=== PATIENT | female | born 1935 | race Caucasian/White ===

== ENCOUNTER 2017-10-02 04:48 | Inpatient (IN) ==
[2017-10-02] MEDS ORDERED: ONDANSETRON 4 MG/2 ML VIAL IV STA (05:04)
[2017-10-02] MEDS ORDERED: MORPHINE 4 MG/1 ML VIAL IV STA (05:04)
[2017-10-02 05:45] LABS: PT Patient Result 10.5 SECS; Partial Thromboplastin Time 26.8 SECS (0-40)
[2017-10-02 05:49] LABS: Apearance,Urine CLOUDY (Clear); Bilirubin,Urine Negative (Negative); Blood, Urine Small mg/dL (Negative); Glucose,Urine (UA) Negative (Negative); Ketones,Urine Negative (Negative); Nitrite,Urine Positive (Negative); Protein,Urine 100 MG/DL; RBC,Urine 29 /HPF (0-4); Urine Color Amber (Yellow); Urine Specific Gravity 1.008 (1.001-1.035); Urine Urobilinogen < 2.0 EU/DL (0.2-1.0); WBC,Urine 2432 /HPF (0-6)
[2017-10-02 05:58] LABS: Albumin 3.4 G/DL (3.4-5.0); Bilirubin,Total 0.6 MG/DL (0.2-1.0); Calcium 8.4 MG/DL (8.5-10.1); Osmolality,Calculated 287.1 MOS/KG (273-304); Potassium 3.8 MMOL/L (3.5-5.1); Total Protein 6.6 G/DL (6.4-8.3)
[2017-10-02] MEDS ORDERED: MORPHINE 4 MG/1 ML VIAL IV PRN ×2 (06:08→08:07)
[2017-10-02] MEDS ORDERED: ONDANSETRON 4 MG/2 ML VIAL IV PRN (06:08)
[2017-10-02] MEDS ORDERED: MAGNESIUM HYDROXIDE SUSP 30 ML UDCUP PO PRN ×2 (06:08→07:57)
[2017-10-02 06:24] LABS: Basophils % 0.2 % (0.0-0.8); Eosinophils # 0.1 10*3/uL (0.0-0.87); Eosinophils % 0.7 % (0.00-10.9); Hematocrit 42.7 VOL% (35.7-47.0); Immature Granulocytes % 0.6 %; Lymphocytes # 1.2 10*3/uL (1.4-4.0); Lymphocytes % 7.4 % (21.3-54.2); Mean Corpuscular HGB Conc 30.4 GM/DL (32-36); Mean Corpuscular Hemoglobin 29 PG (27-34); Mean Corpuscular Volume 93.8 FL (87-102); Mean Platelet Volume 11.3 FL (9.6-12.0); Monocytes # 0.8 10*3/uL (0.11-0.8); Monocytes % 5.1 % (1.7-12.7); Neutrophils # 14.1 10*3/uL (1.4-7.4); Platelet Count 209 T/CUMM (130-400); Red Blood Count 4.55 MC/CUMM (3.8-5.5); Red Cell Distribution Width 14.7 % (9.3-17.3); White Blood Count 16.4 T/CUMM (4-12)
[2017-10-02] MEDS ORDERED: BUPIVACAINE SPINAL 0.75% 2 ML AMP SPINAL ONE ×2 (06:54→06:55)
[2017-10-02] MEDS ORDERED: TRANEXAMIC ACID 1,000 MG/10 ML VIAL ONE (07:05)
[2017-10-02] MEDS ORDERED: ALBUTEROL 2.5 MG/3 ML NEB RESP TX ONE (07:57)
[2017-10-02] MEDS ORDERED: PROMETHAZINE 25 MG/1 ML VIAL IM PRN (08:07)
[2017-10-02] MEDS ORDERED: ACETAMINOPHEN 325 MG TABLET PO PRN (08:07)
[2017-10-02] MEDS ORDERED: BISACODYL 10 MG SUPP RECTAL PRN (08:07)
[2017-10-02] MEDS ORDERED: LACTULOSE 20 GM/30 ML UDCUP PO PRN (08:07)
[2017-10-02] MEDS ORDERED: MELOXICAM 7.5 MG TABLET PO PRN (08:12)
[2017-10-02] MEDS ORDERED: ALBUTEROL/IPRATROPIUM 3 ML NEB RESP TX PRN (08:12)
[2017-10-02] MEDS ORDERED: ceFAZolin 1,000 MG VIAL ONE (08:18)
[2017-10-02] MEDS ORDERED: SEVOFLURANE 1 UNIT/15 MINUTE INH ONE (09:55)
[2017-10-02] MEDS ORDERED: fentaNYL 100 MCG/2 ML VIAL ONE (09:55)
[2017-10-02] MEDS ORDERED: PROPOFOL 200 MG/20 ML VIAL IV ONE (09:55)
[2017-10-02] MEDS ORDERED: ePHEDrine 50 MG/ML AMP ONE (09:55)
[2017-10-02] MEDS ORDERED: PHENYLEPHRINE 10 MG/1 ML VIAL IV ONE (09:56)
[2017-10-02] MEDS ORDERED: ONDANSETRON 4 MG/2 ML VIAL ONE (09:56)
[2017-10-02] MEDS ORDERED: PHENYLEPHRINE 1 MG/10 ML SYRINGE IV ONE (09:56)
[2017-10-02] MEDS ORDERED: KETAMINE 500 MG/10 ML VIAL ONE (09:56)
[2017-10-02] MEDS ORDERED: ACETAMINOPHEN 1,000 MG/100 ML VIAL IV ONE (09:56)
[2017-10-02] MEDS ORDERED: GLYCOPYRROLATE 0.4 MG/2 ML VIAL ONE (09:56)
[2017-10-02] MEDS ORDERED: LACTATED RINGERS 1,000 ML IV ONE (09:57)
[2017-10-02] MEDS ORDERED: ROCURONIUM 100 MG/10 ML VIAL IV ONE (09:57)
[2017-10-02] MEDS ORDERED: NEOSTIGMINE 10 MG/10 ML VIAL ONE (09:57)
[2017-10-02] MEDS ORDERED: ESMOLOL 100 MG/10 ML VIAL IV ONE ×2 (10:29)
[2017-10-02] MEDS: PHENYLEPHRINE DRIP 40 MG/250 ML PREMIX IV PRN ×2 (10:30→21:37)
[2017-10-02] MEDS: DEXTROSE 5% NACL 0.45% 1,000 ML IV SCH (11:43)
[2017-10-02] MEDS: GABAPENTIN 600 MG TABLET PO SCH ×2 (11:44→20:47)
[2017-10-02] MEDS: THEOPHYLLINE ER (24 HR) 200 MG CAPSULE PO SCH (11:44)
[2017-10-02] MEDS ORDERED: MAGNESIUM SULF RIDER 2 GM in PREMIX 1 EACH IV PRN (15:31)
[2017-10-02] MEDS ORDERED: MAGNESIUM SULF RIDER 4 GM in PREMIX 1 EACH IV PRN (15:31)
[2017-10-02] MEDS: ceFAZolin 1,000 MG in SYRINGE 1 EACH IV SCH ×2 (17:20→23:57)
[2017-10-02] MEDS: GABAPENTIN 300 MG CAPSULE PO SCH (18:04)
[2017-10-02] MEDS: clonazePAM 0.5 MG TABLET PO SCH (20:47)
[2017-10-03 05:56] LABS: Calcium 7.1 MG/DL (8.5-10.1); Osmolality,Calculated 285.1 MOS/KG (273-304); Potassium 4.2 MMOL/L (3.5-5.1)
[2017-10-03] MEDS: LEVOTHYROXINE 50 MCG TABLET PO SCH (06:18)
[2017-10-03] MEDS: DEXTROSE 5% NACL 0.45% 1,000 ML IV SCH ×2 (06:20→08:42)
[2017-10-03 07:38] LABS: Basophils % 0.1 % (0.0-0.8); Eosinophils # 0.1 10*3/uL (0.0-0.87); Eosinophils % 0.6 % (0.00-10.9); Hematocrit 30.5 VOL% (35.7-47.0); Hemoglobin 9.2 GM/DL (12.0-16.0); Immature Granulocytes % 0.8 %; Immature Granulocytes Absolute 0.09 #; Lymphocytes # 1.4 10*3/uL (1.4-4.0); Lymphocytes % 12.4 % (21.3-54.2); Mean Corpuscular HGB Conc 30.2 GM/DL (32-36); Mean Corpuscular Hemoglobin 29 PG (27-34); Mean Platelet Volume 10.6 FL (9.6-12.0); Neutrophils # 8.4 10*3/uL (1.4-7.4); Neutrophils % 77.1 % (38.7-73.9); Platelet Count 179 T/CUMM (130-400); Red Blood Count 3.21 MC/CUMM (3.8-5.5); Red Cell Distribution Width 14.6 % (9.3-17.3); White Blood Count 10.9 T/CUMM (4-12)
[2017-10-03] MEDS: ceFAZolin 1,000 MG in SYRINGE 1 EACH IV SCH (08:49)
[2017-10-03] MEDS: FUROSEMIDE 40 MG TABLET PO SCH (08:53)
[2017-10-03] MEDS: THEOPHYLLINE ER (24 HR) 200 MG CAPSULE PO SCH (09:09)
[2017-10-03] MEDS: POTASSIUM CHLORIDE 10 MEQ TABLET PO SCH (09:10)
[2017-10-03] MEDS: GABAPENTIN 600 MG TABLET PO SCH ×2 (09:17→20:19)
[2017-10-03] MEDS: ALBUTEROL/IPRATROPIUM 3 ML NEB RESP TX SCH (09:36)
[2017-10-03] MEDS: cefTRIAXone 1,000 MG in SYRINGE 1 EACH IV SCH (13:37)
[2017-10-03] MEDS: GABAPENTIN 300 MG CAPSULE PO SCH (13:38)
[2017-10-03] MEDS: LORATADINE 10 MG TABLET PO SCH (17:40)
[2017-10-03] MEDS: clonazePAM 0.5 MG TABLET PO SCH (20:19)
[2017-10-04 05:13] LABS: Basophils % 0.1 % (0.0-0.8); Eosinophils # 0.2 10*3/uL (0.0-0.87); Eosinophils % 2.5 % (0.00-10.9); Hematocrit 24.5 VOL% (35.7-47.0); Hemoglobin 7.5 GM/DL (12.0-16.0); Immature Granulocytes % 0.6 %; Immature Granulocytes Absolute 0.05 #; Lymphocytes # 1.5 10*3/uL (1.4-4.0); Lymphocytes % 17.3 % (21.3-54.2); Mean Corpuscular HGB Conc 30.6 GM/DL (32-36); Mean Corpuscular Hemoglobin 29 PG (27-34); Mean Corpuscular Volume 93.5 FL (87-102); Mean Platelet Volume 11.3 FL (9.6-12.0); Monocytes # 0.7 10*3/uL (0.11-0.8); Monocytes % 8.8 % (1.7-12.7); Neutrophils % 70.7 % (38.7-73.9); Platelet Count 134 T/CUMM (130-400); Red Blood Count 2.62 MC/CUMM (3.8-5.5); Red Cell Distribution Width 14.2 % (9.3-17.3); White Blood Count 8.4 T/CUMM (4-12)
[2017-10-04] MEDS: LEVOTHYROXINE 50 MCG TABLET PO SCH (06:01)
[2017-10-04] MEDS ORDERED: diphenhydrAMINE CAP 25 MG CAPSULE PO PRN (06:54)
[2017-10-04] MEDS ORDERED: SODIUM CHLORIDE 0.9% 1,000 ML IV PRN (06:54)
[2017-10-04] MEDS: ALBUTEROL/IPRATROPIUM 3 ML NEB RESP TX SCH ×2 (06:58→19:12)
[2017-10-04] MEDS ORDERED: LORATADINE 10 MG TABLET PO SCH (09:00)
[2017-10-04] MEDS: GABAPENTIN 600 MG TABLET PO SCH ×2 (09:09→21:15)
[2017-10-04] MEDS: LORATADINE 10 MG TABLET PO SCH (09:10)
[2017-10-04] MEDS: POTASSIUM CHLORIDE 10 MEQ TABLET PO SCH (09:10)
[2017-10-04] MEDS: GABAPENTIN 300 MG CAPSULE PO SCH (14:29)
[2017-10-04] MEDS: FUROSEMIDE 40 MG TABLET PO SCH (17:15)
[2017-10-04] MEDS: cefTRIAXone 1,000 MG in SYRINGE 1 EACH IV SCH (17:19)
[2017-10-04] MEDS: ERTAPENEM 1,000 MG in SODIUM CHLORIDE 0.9% 100 ML IV SCH (18:42)
[2017-10-04] MEDS: clonazePAM 0.5 MG TABLET PO SCH (21:16)
[2017-10-05 04:53] LABS: Basophils % 0.1 % (0.0-0.8); Eosinophils # 0.2 10*3/uL (0.0-0.87); Eosinophils % 2.6 % (0.00-10.9); Hematocrit 31.5 VOL% (35.7-47.0); Hemoglobin 9.9 GM/DL (12.0-16.0); Immature Granulocytes % 0.7 %; Immature Granulocytes Absolute 0.06 #; Lymphocytes # 1.5 10*3/uL (1.4-4.0); Lymphocytes % 17.2 % (21.3-54.2); Mean Corpuscular HGB Conc 31.4 GM/DL (32-36); Mean Corpuscular Hemoglobin 29 PG (27-34); Mean Corpuscular Volume 91.8 FL (87-102); Mean Platelet Volume 10.8 FL (9.6-12.0); Monocytes # 0.7 10*3/uL (0.11-0.8); Monocytes % 8.1 % (1.7-12.7); Neutrophils # 6.3 10*3/uL (1.4-7.4); Neutrophils % 71.3 % (38.7-73.9); Platelet Count 139 T/CUMM (130-400); Red Blood Count 3.43 MC/CUMM (3.8-5.5); Red Cell Distribution Width 13.9 % (9.3-17.3); White Blood Count 8.8 T/CUMM (4-12)
[2017-10-05 05:24] LABS: Calcium 7.3 MG/DL (8.5-10.1); Osmolality,Calculated 278.4 MOS/KG (273-304); Potassium 4.3 MMOL/L (3.5-5.1)
[2017-10-05] MEDS: LEVOTHYROXINE 50 MCG TABLET PO SCH (06:40)
[2017-10-05] MEDS ORDERED: ENOXAPARIN 30 MG/0.3 ML SYRINGE SUBCUT SCH (09:00)
[2017-10-05] MEDS: LORATADINE 10 MG TABLET PO SCH (10:07)
[2017-10-05] MEDS: GABAPENTIN 600 MG TABLET PO SCH ×2 (10:07→21:01)
[2017-10-05] MEDS: GABAPENTIN 300 MG CAPSULE PO SCH (14:48)
[2017-10-05] MEDS ORDERED: METOPROLOL SUCCINATE XL 25 MG TABLET PO ONE (14:58)
[2017-10-05] MEDS: ERTAPENEM 1,000 MG in SODIUM CHLORIDE 0.9% 100 ML IV SCH (16:45)
[2017-10-05] MEDS: clonazePAM 0.5 MG TABLET PO SCH (21:01)
[2017-10-05] MEDS: APIXABAN 2.5 MG TABLET PO SCH (21:01)
[2017-10-06 04:54] LABS: Basophils % 0.2 % (0.0-0.8); Eosinophils # 0.4 10*3/uL (0.0-0.87); Eosinophils % 4.4 % (0.00-10.9); Hematocrit 31.9 VOL% (35.7-47.0); Hemoglobin 9.8 GM/DL (12.0-16.0); Immature Granulocytes % 1.1 %; Immature Granulocytes Absolute 0.09 #; Lymphocytes # 1.7 10*3/uL (1.4-4.0); Lymphocytes % 20.5 % (21.3-54.2); Mean Corpuscular HGB Conc 30.7 GM/DL (32-36); Mean Corpuscular Hemoglobin 29 PG (27-34); Mean Corpuscular Volume 92.7 FL (87-102); Monocytes # 0.8 10*3/uL (0.11-0.8); Monocytes % 9.9 % (1.7-12.7); Neutrophils # 5.2 10*3/uL (1.4-7.4); Neutrophils % 63.9 % (38.7-73.9); Platelet Count 181 T/CUMM (130-400); Red Blood Count 3.44 MC/CUMM (3.8-5.5); Red Cell Distribution Width 13.8 % (9.3-17.3); White Blood Count 8.2 T/CUMM (4-12)
[2017-10-06 05:13] LABS: Calcium 7.5 MG/DL (8.5-10.1); Osmolality,Calculated 279.3 MOS/KG (273-304); Potassium 4.1 MMOL/L (3.5-5.1)
[2017-10-06] MEDS: LEVOTHYROXINE 50 MCG TABLET PO SCH (06:20)
[2017-10-06] MEDS: ALBUTEROL/IPRATROPIUM 3 ML NEB RESP TX SCH (07:26)
[2017-10-06] MEDS: FUROSEMIDE 40 MG TABLET PO SCH (09:36)
[2017-10-06] MEDS: APIXABAN 2.5 MG TABLET PO SCH ×2 (09:36→21:05)
[2017-10-06] MEDS: METOPROLOL SUCCINATE XL 25 MG TABLET PO SCH (09:36)
[2017-10-06] MEDS: GABAPENTIN 600 MG TABLET PO SCH ×2 (09:36→21:08)
[2017-10-06] MEDS: LORATADINE 10 MG TABLET PO SCH (09:36)
[2017-10-06] MEDS: POTASSIUM CHLORIDE 10 MEQ TABLET PO SCH (09:37)
[2017-10-06] MEDS: GABAPENTIN 300 MG CAPSULE PO SCH (14:15)
[2017-10-06] MEDS: ERTAPENEM 1,000 MG in SODIUM CHLORIDE 0.9% 100 ML IV SCH (17:05)
[2017-10-06] MEDS: clonazePAM 0.5 MG TABLET PO SCH (21:05)
[2017-10-07] MEDS: ALBUTEROL/IPRATROPIUM 3 ML NEB RESP TX SCH (07:05)
[2017-10-07] MEDS: LEVOTHYROXINE 50 MCG TABLET PO SCH (08:04)
[2017-10-07] MEDS: METOPROLOL SUCCINATE XL 25 MG TABLET PO SCH (09:45)
[2017-10-07] MEDS: diphenhydrAMINE CAP 25 MG CAPSULE PO PRN (09:46)
[2017-10-07] MEDS: APIXABAN 2.5 MG TABLET PO SCH ×2 (09:46→20:52)
[2017-10-07] MEDS: GABAPENTIN 600 MG TABLET PO SCH ×2 (09:46→20:52)
[2017-10-07] MEDS: LORATADINE 10 MG TABLET PO SCH (09:47)
[2017-10-07] MEDS: GABAPENTIN 300 MG CAPSULE PO SCH (15:15)
[2017-10-07] MEDS: ERTAPENEM 1,000 MG in SODIUM CHLORIDE 0.9% 100 ML IV SCH (17:00)
[2017-10-07] MEDS: clonazePAM 0.5 MG TABLET PO SCH (20:52)
[2017-10-08] MEDS: LEVOTHYROXINE 50 MCG TABLET PO SCH (06:31)
[2017-10-08] MEDS: ALBUTEROL/IPRATROPIUM 3 ML NEB RESP TX SCH (07:00)
[2017-10-08] MEDS: POTASSIUM CHLORIDE 10 MEQ TABLET PO SCH (09:37)
[2017-10-08] MEDS: FUROSEMIDE 40 MG TABLET PO SCH (09:37)
[2017-10-08] MEDS: APIXABAN 2.5 MG TABLET PO SCH (09:37)
[2017-10-08] MEDS: METOPROLOL SUCCINATE XL 25 MG TABLET PO SCH (09:37)
[2017-10-08] MEDS: GABAPENTIN 600 MG TABLET PO SCH (09:37)
[2017-10-08] MEDS: LORATADINE 10 MG TABLET PO SCH (09:38)
[2017-10-08] MEDS: diphenhydrAMINE CAP 25 MG CAPSULE PO PRN (11:22)
[2017-10-08] MEDS: GABAPENTIN 300 MG CAPSULE PO SCH (15:36)
[2017-10-08] MEDS: ERTAPENEM 1,000 MG in SODIUM CHLORIDE 0.9% 100 ML IV SCH (18:23)
[2017-10-08 22:10] VITALS: BP 131/74
== END 2017-10-08 19:10 | disposition swing bed (61) | DRG 481 ==
LOC: EDBD → EDUNIT# → N.ED 04:48 → N.EDINP 06:08 → N.3E 06:36 → N.ICU 11:09 → N.3E 10-05 07:26
PROVIDERS: ADMIT Family Medicine; ATTEND Family Medicine

== ENCOUNTER 2017-10-20 13:06 | Inpatient (IN) ==
[2017-10-20] MEDS ORDERED: TEMAZEPAM 15 MG CAPSULE PO PRN (14:57)
[2017-10-20] MEDS ORDERED: ONDANSETRON 4 MG/2 ML VIAL IV PRN (14:59)
[2017-10-20] MEDS ORDERED: MORPHINE 4 MG/1 ML VIAL IV PRN (15:00)
[2017-10-20 16:03] LABS: Basophils % 0.5 % (0.0-0.8); Eosinophils # 0.3 10*3/uL (0.0-0.87); Eosinophils % 4.1 % (0.00-10.9); Hematocrit 34.5 VOL% (35.7-47.0); Hemoglobin 10.5 GM/DL (12.0-16.0); Immature Granulocytes % 1.3 %; Lymphocytes # 1.6 10*3/uL (1.4-4.0); Lymphocytes % 21.7 % (21.3-54.2); Mean Corpuscular HGB Conc 30.4 GM/DL (32-36); Mean Corpuscular Hemoglobin 29 PG (27-34); Mean Corpuscular Volume 94.8 FL (87-102); Mean Platelet Volume 10.5 FL (9.6-12.0); Monocytes # 0.5 10*3/uL (0.11-0.8); Neutrophils # 4.9 10*3/uL (1.4-7.4); Neutrophils % 65.4 % (38.7-73.9); Platelet Count 293 T/CUMM (130-400); Red Blood Count 3.64 MC/CUMM (3.8-5.5); Red Cell Distribution Width 15.3 % (9.3-17.3); White Blood Count 7.5 T/CUMM (4-12)
[2017-10-20 16:16] LABS: Apearance,Urine Slightly Hazy (Clear); Bilirubin,Urine Negative (Negative); Blood, Urine Negative (Negative); Glucose,Urine (UA) Negative (Negative); Ketones,Urine Negative (Negative); Mucus,Urine Occasional /LPF (Occasional); Nitrite,Urine Negative (Negative); Protein,Urine Negative; RBC,Urine 1 /HPF (0-4); Squamous Epithelial Cell,Urine Occasional /HPF (0-10); Urine Color Yellow (Yellow); Urine Specific Gravity 1.013 (1.001-1.035); Urine Urobilinogen < 2.0 EU/DL (0.2-1.0); WBC,Urine 92 /HPF (0-6)
[2017-10-20 16:23] LABS: Albumin 2.2 G/DL (3.4-5.0); Bilirubin,Total 0.4 MG/DL (0.2-1.0); Calcium 8.4 MG/DL (8.5-10.1); Osmolality,Calculated 284.1 MOS/KG (273-304); Potassium 4.3 MMOL/L (3.5-5.1); Total Protein 6.1 G/DL (6.4-8.3)
[2017-10-20] MEDS ORDERED: LACTULOSE 20 GM/30 ML UDCUP PO PRN (20:04)
[2017-10-20] MEDS ORDERED: MAGNESIUM HYDROXIDE SUSP 30 ML UDCUP PO PRN (20:04)
[2017-10-20] MEDS ORDERED: ACETAMINOPHEN 325 MG TABLET PO PRN (20:04)
[2017-10-20] MEDS ORDERED: ALBUTEROL/IPRATROPIUM 3 ML NEB RESP TX PRN (20:04)
[2017-10-20] MEDS ORDERED: BISACODYL 10 MG SUPP RECTAL PRN (20:04)
[2017-10-20] MEDS ORDERED: diphenhydrAMINE CAP 25 MG CAPSULE PO PRN (20:04)
[2017-10-20] MEDS ORDERED: POTASSIUM CHLORIDE 10 MEQ TABLET PO SCH (20:30)
[2017-10-20] MEDS ORDERED: FUROSEMIDE 40 MG TABLET PO SCH (20:30)
[2017-10-20] MEDS: clonazePAM 0.5 MG TABLET PO SCH (21:58)
[2017-10-20] MEDS: LACTATED RINGERS 1,000 ML IV SCH (21:58)
[2017-10-20] MEDS: GABAPENTIN 600 MG TABLET PO SCH (21:58)
[2017-10-21] MEDS: LEVOTHYROXINE 50 MCG TABLET PO SCH (07:06)
[2017-10-21] MEDS ORDERED: BUPIVACAINE SPINAL 0.75% 2 ML AMP SPINAL ONE (08:20)
[2017-10-21] MEDS: THEOPHYLLINE ER (24 HR) 200 MG CAPSULE PO SCH (08:21)
[2017-10-21] MEDS: GABAPENTIN 600 MG TABLET PO SCH ×2 (08:21→21:24)
[2017-10-21] MEDS: LORATADINE 10 MG TABLET PO SCH (08:21)
[2017-10-21] MEDS ORDERED: ceFAZolin 1,000 MG VIAL ONE (09:17)
[2017-10-21] MEDS ORDERED: SODIUM CHLORIDE 0.9% 1,000 ML IV PRN (09:31)
[2017-10-21] MEDS ORDERED: PROMETHAZINE 25 MG/1 ML VIAL IM PRN ×2 (10:45→10:48)
[2017-10-21] MEDS ORDERED: MELOXICAM 7.5 MG TABLET PO PRN (10:48)
[2017-10-21] MEDS ORDERED: ONDANSETRON 4 MG/2 ML VIAL IV PRN (10:48)
[2017-10-21] MEDS ORDERED: MORPHINE 4 MG/1 ML VIAL IV PRN (10:50)
[2017-10-21] MEDS ORDERED: ePHEDrine 50 MG/ML AMP ONE (11:07)
[2017-10-21] MEDS ORDERED: SEVOFLURANE 1 UNIT/15 MINUTE INH ONE (11:08)
[2017-10-21] MEDS ORDERED: ESMOLOL 100 MG/10 ML VIAL IV ONE (11:08)
[2017-10-21] MEDS ORDERED: fentaNYL 100 MCG/2 ML VIAL ONE (11:08)
[2017-10-21] MEDS ORDERED: GLYCOPYRROLATE 0.4 MG/2 ML VIAL ONE (11:08)
[2017-10-21] MEDS ORDERED: LACTATED RINGERS 1,000 ML IV ONE (11:09)
[2017-10-21] MEDS ORDERED: ACETAMINOPHEN 1,000 MG/100 ML VIAL IV ONE (11:09)
[2017-10-21] MEDS ORDERED: PHENYLEPHRINE 1 MG/10 ML SYRINGE IV ONE (11:09)
[2017-10-21 13:03] LABS: Basophils % 0.3 % (0.0-0.8); Eosinophils # 0.2 10*3/uL (0.0-0.87); Eosinophils % 2.4 % (0.00-10.9); Hematocrit 36.3 VOL% (35.7-47.0); Hemoglobin 10.9 GM/DL (12.0-16.0); Immature Granulocytes % 1.8 %; Immature Granulocytes Absolute 0.17 #; Lymphocytes # 1.3 10*3/uL (1.4-4.0); Lymphocytes % 13.7 % (21.3-54.2); Mean Corpuscular Hemoglobin 29 PG (27-34); Mean Corpuscular Volume 95.5 FL (87-102); Mean Platelet Volume 10.3 FL (9.6-12.0); Monocytes # 0.6 10*3/uL (0.11-0.8); Neutrophils # 7.2 10*3/uL (1.4-7.4); Neutrophils % 75.8 % (38.7-73.9); Platelet Count 305 T/CUMM (130-400); Red Cell Distribution Width 15.7 % (9.3-17.3); White Blood Count 9.4 T/CUMM (4-12)
[2017-10-21] MEDS: GABAPENTIN 300 MG CAPSULE PO SCH (14:05)
[2017-10-21] MEDS: ceFAZolin 1,000 MG in SYRINGE 1 EACH IV SCH ×2 (14:05→21:25)
[2017-10-21] MEDS: clonazePAM 0.5 MG TABLET PO SCH (21:20)
[2017-10-21] MEDS: APIXABAN 2.5 MG TABLET PO SCH (21:21)
[2017-10-21] MEDS: LACTATED RINGERS 1,000 ML IV SCH (23:42)
[2017-10-22 05:22] LABS: Basophils % 0.3 % (0.0-0.8); Eosinophils # 0.1 10*3/uL (0.0-0.87); Eosinophils % 1.2 % (0.00-10.9); Hemoglobin 9.3 GM/DL (12.0-16.0); Immature Granulocytes % 1.3 %; Immature Granulocytes Absolute 0.12 #; Lymphocytes # 1.2 10*3/uL (1.4-4.0); Lymphocytes % 12.6 % (21.3-54.2); Mean Corpuscular Hemoglobin 29 PG (27-34); Mean Corpuscular Volume 95.1 FL (87-102); Mean Platelet Volume 10.6 FL (9.6-12.0); Monocytes # 0.7 10*3/uL (0.11-0.8); Monocytes % 7.5 % (1.7-12.7); Neutrophils # 7.4 10*3/uL (1.4-7.4); Neutrophils % 77.1 % (38.7-73.9); Platelet Count 286 T/CUMM (130-400); Red Blood Count 3.26 MC/CUMM (3.8-5.5); Red Cell Distribution Width 15.7 % (9.3-17.3); White Blood Count 9.5 T/CUMM (4-12)
[2017-10-22] MEDS: ceFAZolin 1,000 MG in SYRINGE 1 EACH IV SCH (06:15)
[2017-10-22] MEDS: LEVOTHYROXINE 50 MCG TABLET PO SCH (06:15)
[2017-10-22] MEDS: METOPROLOL SUCCINATE XL 25 MG TABLET PO SCH (09:43)
[2017-10-22] MEDS: LORATADINE 10 MG TABLET PO SCH (09:43)
[2017-10-22] MEDS: FUROSEMIDE 40 MG TABLET PO SCH (09:43)
[2017-10-22] MEDS: GABAPENTIN 600 MG TABLET PO SCH ×2 (09:43→21:01)
[2017-10-22] MEDS: POTASSIUM CHLORIDE 10 MEQ TABLET PO SCH (09:43)
[2017-10-22] MEDS: APIXABAN 2.5 MG TABLET PO SCH ×2 (09:43→21:01)
[2017-10-22] MEDS: THEOPHYLLINE ER (24 HR) 200 MG CAPSULE PO SCH (09:43)
[2017-10-22] MEDS: LACTATED RINGERS 1,000 ML IV SCH (15:33)
[2017-10-22] MEDS: GABAPENTIN 300 MG CAPSULE PO SCH (17:20)
[2017-10-22] MEDS: clonazePAM 0.5 MG TABLET PO SCH (21:01)
[2017-10-23] MEDS: LEVOTHYROXINE 50 MCG TABLET PO SCH (06:00)
[2017-10-23 07:10] LABS: Hematocrit 29.3 VOL% (35.7-47.0); Hemoglobin 8.9 GM/DL (12.0-16.0); Mean Corpuscular HGB Conc 30.4 GM/DL (32-36); Mean Corpuscular Hemoglobin 29 PG (27-34); Mean Corpuscular Volume 95.4 FL (87-102); Platelet Count 256 T/CUMM (130-400); Red Blood Count 3.07 MC/CUMM (3.8-5.5); Red Cell Distribution Width 15.9 % (9.3-17.3); White Blood Count 9.1 T/CUMM (4-12)
[2017-10-23 07:11] LABS: Basophils % 0.2 % (0.0-0.8); Eosinophils # 0.1 10*3/uL (0.0-0.87); Eosinophils % 1.3 % (0.00-10.9); Immature Granulocytes % 1.1 %; Lymphocytes # 1.5 10*3/uL (1.4-4.0); Lymphocytes % 16.4 % (21.3-54.2); Mean Platelet Volume 10.3 FL (9.6-12.0); Monocytes # 0.7 10*3/uL (0.11-0.8); Monocytes % 7.9 % (1.7-12.7); Neutrophils # 6.7 10*3/uL (1.4-7.4); Neutrophils % 73.1 % (38.7-73.9)
[2017-10-23 07:23] LABS: Calcium 7.5 MG/DL (8.5-10.1); Osmolality,Calculated 279.5 MOS/KG (273-304); Potassium 4.2 MMOL/L (3.5-5.1)
[2017-10-23] MEDS: LACTATED RINGERS 1,000 ML IV SCH (07:52)
[2017-10-23] MEDS: GABAPENTIN 600 MG TABLET PO SCH ×2 (08:40→21:06)
[2017-10-23] MEDS: THEOPHYLLINE ER (24 HR) 200 MG CAPSULE PO SCH (08:40)
[2017-10-23] MEDS: LORATADINE 10 MG TABLET PO SCH (08:40)
[2017-10-23] MEDS: APIXABAN 2.5 MG TABLET PO SCH ×2 (08:41→21:05)
[2017-10-23] MEDS: METOPROLOL SUCCINATE XL 25 MG TABLET PO SCH (08:41)
[2017-10-23] MEDS: GABAPENTIN 300 MG CAPSULE PO SCH (13:17)
[2017-10-23] MEDS: NITROFURANTOIN MACRO/MONO 100 MG CAPSULE PO SCH (21:05)
[2017-10-23] MEDS: clonazePAM 0.5 MG TABLET PO SCH (21:07)
[2017-10-24 06:10] LABS: Basophils % 0.3 % (0.0-0.8); Eosinophils # 0.2 10*3/uL (0.0-0.87); Eosinophils % 2.8 % (0.00-10.9); Hematocrit 27.8 VOL% (35.7-47.0); Hemoglobin 8.3 GM/DL (12.0-16.0); Immature Granulocytes % 1.2 %; Immature Granulocytes Absolute 0.09 #; Lymphocytes # 1.7 10*3/uL (1.4-4.0); Lymphocytes % 22.7 % (21.3-54.2); Mean Corpuscular HGB Conc 29.9 GM/DL (32-36); Mean Corpuscular Hemoglobin 29 PG (27-34); Mean Corpuscular Volume 95.5 FL (87-102); Mean Platelet Volume 10.9 FL (9.6-12.0); Monocytes # 0.7 10*3/uL (0.11-0.8); Monocytes % 9.2 % (1.7-12.7); Neutrophils # 4.6 10*3/uL (1.4-7.4); Neutrophils % 63.8 % (38.7-73.9); Platelet Count 245 T/CUMM (130-400); Red Blood Count 2.91 MC/CUMM (3.8-5.5); Red Cell Distribution Width 15.4 % (9.3-17.3); White Blood Count 7.3 T/CUMM (4-12)
[2017-10-24] MEDS: LEVOTHYROXINE 50 MCG TABLET PO SCH (06:12)
[2017-10-24] MEDS: THEOPHYLLINE ER (24 HR) 200 MG CAPSULE PO SCH (08:30)
[2017-10-24] MEDS: METOPROLOL SUCCINATE XL 25 MG TABLET PO SCH (08:30)
[2017-10-24] MEDS: LORATADINE 10 MG TABLET PO SCH (08:30)
[2017-10-24] MEDS: GABAPENTIN 600 MG TABLET PO SCH (08:31)
[2017-10-24] MEDS: POTASSIUM CHLORIDE 10 MEQ TABLET PO SCH (08:31)
[2017-10-24] MEDS: NITROFURANTOIN MACRO/MONO 100 MG CAPSULE PO SCH (08:31)
[2017-10-24] MEDS: APIXABAN 2.5 MG TABLET PO SCH (08:31)
[2017-10-24] MEDS: FUROSEMIDE 40 MG TABLET PO SCH (08:31)
[2017-10-24] MEDS: GABAPENTIN 300 MG CAPSULE PO SCH (15:03)
[2017-10-24 16:39] VITALS: BP 100/40
== END 2017-10-24 17:24 | disposition swing bed (61) | DRG 481 ==
LOC: N.3E 14:22
PROVIDERS: ADMIT Orthopaedic Surgery; ATTEND Orthopaedic Surgery

== ENCOUNTER 2018-01-19 08:44 | Inpatient (IN) ==
[2018-01-19] MEDS ORDERED: SODIUM CHLORIDE 0.9% 1,000 ML IV ONE (09:27)
[2018-01-19 09:53] LABS: ABG Base Excess -0.6 MMOL/L (-2.5-2.5); ABG HCO3 23.9 MMOL/L (20-26); ABG Oxygen Saturation 98.7 % (95-100); ABG PCO2 90.8 MM HG (35-48); ABG TCO2 29.3 MMOL/L (23-27)
[2018-01-19 09:56] LABS: ABG PH 7.146 (7.35-7.45)
[2018-01-19 10:13] LABS: Lactic Acid 1.3 MMOL/L (0.4-2.0)
[2018-01-19 10:14] LABS: Albumin 2.5 G/DL (3.4-5.0); Bilirubin,Total 0.4 MG/DL (0.2-1.0); Calcium 8.5 MG/DL (8.5-10.1); Osmolality,Calculated 279.7 MOS/KG (273-304); Potassium 5.2 MMOL/L (3.5-5.1); Total Protein 6.7 G/DL (6.4-8.3)
[2018-01-19 10:21] LABS: Basophils # 0.1 10*3/uL (0.0-0.2); Basophils % 0.5 % (0.0-0.8); Eosinophils % 0.1 % (0.00-10.9); Hematocrit 39.4 VOL% (35.7-47.0); Immature Granulocytes % 3.7 %; Immature Granulocytes Absolute 0.65 #; Lymphocytes # 0.6 10*3/uL (1.4-4.0); Lymphocytes % 3.2 % (21.3-54.2); Mean Corpuscular HGB Conc 27.9 GM/DL (32-36); Mean Corpuscular Hemoglobin 26 PG (27-34); Mean Corpuscular Volume 92.3 FL (87-102); Monocytes # 1.6 10*3/uL (0.11-0.8); Monocytes % 9.3 % (1.7-12.7); Neutrophils # 14.5 10*3/uL (1.4-7.4); Neutrophils % 83.2 % (38.7-73.9); Platelet Count 328 T/CUMM (130-400); Red Blood Count 4.27 MC/CUMM (3.8-5.5); Red Cell Distribution Width 15.4 % (9.3-17.3); White Blood Count 17.4 T/CUMM (4-12)
[2018-01-19 10:48] LABS: Band Neutrophils 2 % (0-10); Hypochromasia 1+; Lymphocytes 2 % (20-55); Ovalocytes Slight; Platelet Estimate Adequate; Segmented Neutrophils 80 % (50-85); Total Cells Counted 100
[2018-01-19 11:01] LABS: Apearance,Urine CLOUDY (Clear); Bilirubin,Urine Negative (Negative); Blood, Urine Small mg/dL (Negative); Glucose,Urine (UA) Negative (Negative); Ketones,Urine Negative (Negative); Mucus,Urine Many /LPF (Occasional); Nitrite,Urine Negative (Negative); Protein,Urine 100 MG/DL; RBC,Urine 186 /HPF (0-4); Squamous Epithelial Cell,Urine Occasional /HPF (0-10); Urine Color Yellow (Yellow); Urine Specific Gravity 1.012 (1.001-1.035); Urine Urobilinogen < 2.0 EU/DL (0.2-1.0); WBC,Urine 5442 /HPF (0-6)
[2018-01-19] MEDS ORDERED: GLUCAGON 1 MG VIAL IM PRN (12:18)
[2018-01-19] MEDS ORDERED: ACETAMINOPHEN 325 MG TABLET PO PRN (12:18)
[2018-01-19] MEDS ORDERED: DEXTROSE 50% 25 GM/50 ML VIAL IV PRN (12:18)
[2018-01-19] MEDS ORDERED: ONDANSETRON 4 MG/2 ML VIAL IV PRN (12:18)
[2018-01-19] MEDS ORDERED: ALBUTEROL 2.5 MG/3 ML NEB RESP TX PRN (12:18)
[2018-01-19] MEDS: SODIUM CHLORIDE 0.9% 1,000 ML IV SCH (13:51)
[2018-01-19] MEDS: PIPERACILLIN/TAZOBACTAM 3,375 MG in SODIUM CHLORIDE 0.9% 100 ML IV SCH (15:35)
[2018-01-19] MEDS: INSULIN LISPRO 100 UNIT/ML SUBCUT SCH ×2 (17:03→21:43)
[2018-01-19] MEDS: ALBUTEROL/IPRATROPIUM 3 ML NEB RESP TX SCH (19:19)
[2018-01-19] MEDS: GABAPENTIN 300 MG CAPSULE PO SCH (21:42)
[2018-01-19] MEDS: DOCUSATE SODIUM 100 MG CAPSULE PO SCH (21:43)
[2018-01-20] MEDS: ALBUTEROL/IPRATROPIUM 3 ML NEB RESP TX SCH ×4 (01:15→20:33)
[2018-01-20] MEDS: PIPERACILLIN/TAZOBACTAM 3,375 MG in SODIUM CHLORIDE 0.9% 100 ML IV SCH ×2 (04:29→15:22)
[2018-01-20 04:42] LABS: Calcium 7.9 MG/DL (8.5-10.1); Osmolality,Calculated 280.2 MOS/KG (273-304)
[2018-01-20 04:48] LABS: Basophils # 0.1 10*3/uL (0.0-0.2); Basophils % 0.6 % (0.0-0.8); Eosinophils % 0.2 % (0.00-10.9); Hematocrit 38.4 VOL% (35.7-47.0); Hemoglobin 10.7 GM/DL (12.0-16.0); Immature Granulocytes % 4.6 %; Immature Granulocytes Absolute 0.62 #; Lymphocytes # 0.8 10*3/uL (1.4-4.0); Lymphocytes % 6.2 % (21.3-54.2); Mean Corpuscular HGB Conc 27.9 GM/DL (32-36); Mean Corpuscular Hemoglobin 26 PG (27-34); Mean Corpuscular Volume 91.9 FL (87-102); Mean Platelet Volume 10.9 FL (9.6-12.0); Monocytes # 1.3 10*3/uL (0.11-0.8); Monocytes % 9.6 % (1.7-12.7); Neutrophils # 10.5 10*3/uL (1.4-7.4); Neutrophils % 78.8 % (38.7-73.9); Platelet Count 288 T/CUMM (130-400); Red Blood Count 4.18 MC/CUMM (3.8-5.5); Red Cell Distribution Width 15.6 % (9.3-17.3); White Blood Count 13.4 T/CUMM (4-12)
[2018-01-20 05:29] LABS: Band Neutrophils 1 % (0-10); Lymphocytes 5 % (20-55); Platelet Estimate Normal; Segmented Neutrophils 86 % (50-85); Total Cells Counted 100
[2018-01-20 05:30] LABS: Hypochromasia Slight
[2018-01-20] MEDS: LEVOTHYROXINE 50 MCG TABLET PO SCH (06:33)
[2018-01-20] MEDS: INSULIN LISPRO 100 UNIT/ML SUBCUT SCH ×4 (08:58→21:31)
[2018-01-20] MEDS ORDERED: SODIUM CHLORIDE 0.9% 500 ML IV ONE (09:00)
[2018-01-20] MEDS: GABAPENTIN 300 MG CAPSULE PO SCH ×2 (09:21→20:58)
[2018-01-20] MEDS: PANTOPRAZOLE 40 MG TABLET PO SCH (09:21)
[2018-01-20] MEDS: DOCUSATE SODIUM 100 MG CAPSULE PO SCH ×2 (09:22→20:58)
[2018-01-20] MEDS: methylPREDNISolone SOD SUC 40 MG/1 ML VIAL IV SCH ×2 (09:23→20:54)
[2018-01-20 09:36] LABS: PT Patient Result 10.6 SECS
[2018-01-20] MEDS: ENOXAPARIN 40 MG/0.4 ML SYRINGE SUBCUT SCH (13:10)
[2018-01-20] MEDS: SODIUM CHLORIDE 0.9% 1,000 ML IV SCH (13:10)
[2018-01-21] MEDS: ALBUTEROL/IPRATROPIUM 3 ML NEB RESP TX SCH ×4 (00:37→19:41)
[2018-01-21] MEDS: PIPERACILLIN/TAZOBACTAM 3,375 MG in SODIUM CHLORIDE 0.9% 100 ML IV SCH ×2 (04:08→14:15)
[2018-01-21] MEDS: SODIUM CHLORIDE 0.9% 1,000 ML IV SCH ×3 (04:10→14:18)
[2018-01-21] MEDS: LEVOTHYROXINE 50 MCG TABLET PO SCH (06:02)
[2018-01-21 07:21] LABS: Calcium 7.7 MG/DL (8.5-10.1); Osmolality,Calculated 290.7 MOS/KG (273-304); Potassium 5.2 MMOL/L (3.5-5.1)
[2018-01-21 07:41] LABS: Basophils # 0.1 10*3/uL (0.0-0.2); Basophils % 0.5 % (0.0-0.8); Hematocrit 33.3 VOL% (35.7-47.0); Hemoglobin 9.8 GM/DL (12.0-16.0); Immature Granulocytes % 11.1 %; Immature Granulocytes Absolute 1.26 #; Lymphocytes # 0.6 10*3/uL (1.4-4.0); Mean Corpuscular HGB Conc 29.4 GM/DL (32-36); Mean Corpuscular Hemoglobin 26 PG (27-34); Mean Corpuscular Volume 89.3 FL (87-102); Mean Platelet Volume 10.2 FL (9.6-12.0); Monocytes # 0.3 10*3/uL (0.11-0.8); Monocytes % 2.3 % (1.7-12.7); Neutrophils # 9.2 10*3/uL (1.4-7.4); Neutrophils % 81.1 % (38.7-73.9); Platelet Count 276 T/CUMM (130-400); Red Blood Count 3.73 MC/CUMM (3.8-5.5); White Blood Count 11.3 T/CUMM (4-12)
[2018-01-21 07:51] LABS: Band Neutrophils 25 % (0-10); Lymphocytes 6 % (20-55); Platelet Estimate Normal; Segmented Neutrophils 69 % (50-85); Smudge Cells Few; Total Cells Counted 100
[2018-01-21 07:52] LABS: Anisocytosis 1+
[2018-01-21] MEDS: INSULIN LISPRO 100 UNIT/ML SUBCUT SCH ×4 (08:41→21:51)
[2018-01-21] MEDS: PANTOPRAZOLE 40 MG TABLET PO SCH (08:41)
[2018-01-21] MEDS: GABAPENTIN 300 MG CAPSULE PO SCH ×2 (08:41→20:15)
[2018-01-21] MEDS: DOCUSATE SODIUM 100 MG CAPSULE PO SCH ×2 (08:42→20:15)
[2018-01-21] MEDS: methylPREDNISolone SOD SUC 40 MG/1 ML VIAL IV SCH ×2 (08:42→20:16)
[2018-01-21] MEDS: ENOXAPARIN 40 MG/0.4 ML SYRINGE SUBCUT SCH (09:15)
[2018-01-22] MEDS: ALBUTEROL/IPRATROPIUM 3 ML NEB RESP TX SCH ×4 (01:18→19:29)
[2018-01-22] MEDS: LEVOTHYROXINE 50 MCG TABLET PO SCH (06:30)
[2018-01-22] MEDS: PIPERACILLIN/TAZOBACTAM 3,375 MG in SODIUM CHLORIDE 0.9% 100 ML IV SCH ×2 (07:20→15:24)
[2018-01-22] MEDS: INSULIN LISPRO 100 UNIT/ML SUBCUT SCH ×4 (08:42→20:55)
[2018-01-22] MEDS: GABAPENTIN 300 MG CAPSULE PO SCH ×2 (08:43→20:53)
[2018-01-22] MEDS: PANTOPRAZOLE 40 MG TABLET PO SCH (08:43)
[2018-01-22] MEDS: DOCUSATE SODIUM 100 MG CAPSULE PO SCH ×2 (08:43→20:53)
[2018-01-22] MEDS: SODIUM CHLORIDE 0.9% 1,000 ML IV SCH ×2 (10:18→23:35)
[2018-01-22] MEDS: ENOXAPARIN 40 MG/0.4 ML SYRINGE SUBCUT SCH (10:36)
[2018-01-22] MEDS: methylPREDNISolone SOD SUC 40 MG/1 ML VIAL IV SCH ×2 (15:19→20:55)
[2018-01-23] MEDS: ALBUTEROL/IPRATROPIUM 3 ML NEB RESP TX SCH ×4 (00:56→19:02)
[2018-01-23] MEDS: PIPERACILLIN/TAZOBACTAM 3,375 MG in SODIUM CHLORIDE 0.9% 100 ML IV SCH ×2 (02:37→13:52)
[2018-01-23] MEDS: LEVOTHYROXINE 50 MCG TABLET PO SCH (06:16)
[2018-01-23 06:36] LABS: Calcium 8.3 MG/DL (8.5-10.1); Osmolality,Calculated 291.3 MOS/KG (273-304); Potassium 5.3 MMOL/L (3.5-5.1)
[2018-01-23 07:27] LABS: Basophils % 0.1 % (0.0-0.8); Eosinophils % 0.1 % (0.00-10.9); Hematocrit 36.9 VOL% (35.7-47.0); Hemoglobin 10.6 GM/DL (12.0-16.0); Immature Granulocytes % 18.2 %; Immature Granulocytes Absolute 3.03 #; Lymphocytes # 0.8 10*3/uL (1.4-4.0); Lymphocytes % 4.8 % (21.3-54.2); Mean Corpuscular HGB Conc 28.7 GM/DL (32-36); Mean Corpuscular Hemoglobin 26 PG (27-34); Mean Corpuscular Volume 89.1 FL (87-102); Mean Platelet Volume 10.5 FL (9.6-12.0); Monocytes # 0.6 10*3/uL (0.11-0.8); Monocytes % 3.9 % (1.7-12.7); NRBC # 0.04 10*3/uL; Neutrophils # 12.1 10*3/uL (1.4-7.4); Neutrophils % 72.9 % (38.7-73.9); Platelet Count 357 T/CUMM (130-400); Red Blood Count 4.14 MC/CUMM (3.8-5.5); Red Cell Distribution Width 15.5 % (9.3-17.3); White Blood Count 16.6 T/CUMM (4-12)
[2018-01-23 07:52] LABS: Band Neutrophils 12 % (0-10); Basophilic Stippling Slight; Lymphocytes 15 % (20-55); Platelet Estimate Normal; Segmented Neutrophils 66 % (50-85); Total Cells Counted 100
[2018-01-23 07:53] LABS: Anisocytosis Slight
[2018-01-23] MEDS: DOCUSATE SODIUM 100 MG CAPSULE PO SCH ×2 (08:29→20:16)
[2018-01-23] MEDS: INSULIN LISPRO 100 UNIT/ML SUBCUT SCH ×4 (08:29→20:17)
[2018-01-23] MEDS: PANTOPRAZOLE 40 MG TABLET PO SCH (08:29)
[2018-01-23] MEDS: GABAPENTIN 300 MG CAPSULE PO SCH ×2 (08:29→20:17)
[2018-01-23] MEDS ORDERED: MEROPENEM 1,000 MG in SODIUM CHLORIDE 0.9% 100 ML IV SCH (08:30)
[2018-01-23] MEDS: methylPREDNISolone SOD SUC 40 MG/1 ML VIAL IV SCH (08:30)
[2018-01-23] MEDS: ENOXAPARIN 40 MG/0.4 ML SYRINGE SUBCUT SCH (09:27)
[2018-01-23] MEDS: VANCOMYCIN INJ 1,000 MG in SODIUM CHLORIDE 0.9% 250 ML IV SCH ×2 (09:28→22:48)
[2018-01-23] MEDS: clonazePAM 0.5 MG TABLET PO PRN (20:17)
[2018-01-23] MEDS: MELATONIN 3 MG TABLET PO PRN (20:17)
[2018-01-23] MEDS: SODIUM CHLORIDE 0.9% 1,000 ML IV SCH (22:47)
[2018-01-24] MEDS: ALBUTEROL/IPRATROPIUM 3 ML NEB RESP TX SCH ×4 (00:17→19:19)
[2018-01-24] MEDS: PIPERACILLIN/TAZOBACTAM 3,375 MG in SODIUM CHLORIDE 0.9% 100 ML IV SCH ×2 (03:03→14:50)
[2018-01-24 04:17] LABS: Basophils % 0.1 % (0.0-0.8); Eosinophils # 0.1 10*3/uL (0.0-0.87); Eosinophils % 0.6 % (0.00-10.9); Hemoglobin 10.6 GM/DL (12.0-16.0); Immature Granulocytes % 16.8 %; Immature Granulocytes Absolute 2.94 #; Lymphocytes # 1.3 10*3/uL (1.4-4.0); Lymphocytes % 7.3 % (21.3-54.2); Mean Corpuscular HGB Conc 28.6 GM/DL (32-36); Mean Corpuscular Hemoglobin 26 PG (27-34); Mean Corpuscular Volume 91.4 FL (87-102); Mean Platelet Volume 9.9 FL (9.6-12.0); Monocytes # 1.3 10*3/uL (0.11-0.8); Monocytes % 7.5 % (1.7-12.7); NRBC # 0.03 10*3/uL; Neutrophils # 11.8 10*3/uL (1.4-7.4); Neutrophils % 67.7 % (38.7-73.9); Platelet Count 309 T/CUMM (130-400); Red Blood Count 4.06 MC/CUMM (3.8-5.5); Red Cell Distribution Width 15.7 % (9.3-17.3); White Blood Count 17.5 T/CUMM (4-12)
[2018-01-24 04:20] LABS: Hematocrit 37.1 VOL% (35.7-47.0)
[2018-01-24 04:29] LABS: Calcium 7.7 MG/DL (8.5-10.1); Osmolality,Calculated 295.6 MOS/KG (273-304); Potassium 4.3 MMOL/L (3.5-5.1)
[2018-01-24 04:54] LABS: Band Neutrophils 1 % (0-10); Eosinophils 2 % (0-10); Lymphocytes 12 % (20-55); Nucleated Red Blood Cells 1 (0-5); Platelet Estimate Normal; Polychromasia Few; Segmented Neutrophils 80 % (50-85); Total Cells Counted 100
[2018-01-24] MEDS: LEVOTHYROXINE 50 MCG TABLET PO SCH (07:25)
[2018-01-24] MEDS: INSULIN LISPRO 100 UNIT/ML SUBCUT SCH ×4 (07:50→20:12)
[2018-01-24] MEDS: PANTOPRAZOLE 40 MG TABLET PO SCH (08:11)
[2018-01-24] MEDS: methylPREDNISolone SOD SUC 40 MG/1 ML VIAL IV SCH (08:11)
[2018-01-24] MEDS: DOCUSATE SODIUM 100 MG CAPSULE PO SCH ×2 (08:11→20:15)
[2018-01-24] MEDS: GABAPENTIN 300 MG CAPSULE PO SCH ×2 (08:11→20:12)
[2018-01-24] MEDS: VANCOMYCIN INJ 1,000 MG in SODIUM CHLORIDE 0.9% 250 ML IV SCH ×2 (10:59→22:41)
[2018-01-24] MEDS: ENOXAPARIN 40 MG/0.4 ML SYRINGE SUBCUT SCH (10:59)
[2018-01-24] MEDS: SODIUM CHLORIDE 0.9% 1,000 ML IV SCH (14:19)
[2018-01-24] MEDS: MELATONIN 3 MG TABLET PO PRN (20:12)
[2018-01-24] MEDS: clonazePAM 0.5 MG TABLET PO PRN (20:12)
[2018-01-25] MEDS: ALBUTEROL/IPRATROPIUM 3 ML NEB RESP TX SCH ×4 (01:21→19:59)
[2018-01-25] MEDS: PIPERACILLIN/TAZOBACTAM 3,375 MG in SODIUM CHLORIDE 0.9% 100 ML IV SCH ×2 (02:49→13:45)
[2018-01-25] MEDS ORDERED: MAGNESIUM SULF RIDER 2 GM in PREMIX 1 EACH IV ONE (04:00)
[2018-01-25] MEDS: LEVOTHYROXINE 50 MCG TABLET PO SCH (06:11)
[2018-01-25 06:40] LABS: Bilirubin,Total 0.7 MG/DL (0.2-1.0); Calcium 7.7 MG/DL (8.5-10.1); Osmolality,Calculated 293.4 MOS/KG (273-304); Potassium 4.4 MMOL/L (3.5-5.1); Total Protein 4.9 G/DL (6.4-8.3)
[2018-01-25 06:50] LABS: Basophils % 0.1 % (0.0-0.8); Eosinophils # 0.2 10*3/uL (0.0-0.87); Eosinophils % 1.3 % (0.00-10.9); Hemoglobin 11.1 GM/DL (12.0-16.0); Immature Granulocytes % 17.7 %; Immature Granulocytes Absolute 3.02 #; Lymphocytes # 1.4 10*3/uL (1.4-4.0); Mean Corpuscular Hemoglobin 26 PG (27-34); Mean Corpuscular Volume 93.9 FL (87-102); Mean Platelet Volume 10.1 FL (9.6-12.0); Monocytes # 1.1 10*3/uL (0.11-0.8); Monocytes % 6.2 % (1.7-12.7); NRBC # 0.04 10*3/uL; Neutrophils # 11.4 10*3/uL (1.4-7.4); Neutrophils % 66.7 % (38.7-73.9); Platelet Count 230 T/CUMM (130-400); Red Blood Count 4.23 MC/CUMM (3.8-5.5); Red Cell Distribution Width 15.9 % (9.3-17.3)
[2018-01-25 06:53] LABS: Hematocrit 39.7 VOL% (35.7-47.0)
[2018-01-25] MEDS: SODIUM CHLORIDE 0.45% 1,000 ML IV SCH ×2 (06:59→20:09)
[2018-01-25] MEDS: INSULIN LISPRO 100 UNIT/ML SUBCUT SCH ×4 (07:36→21:10)
[2018-01-25] MEDS: DOCUSATE SODIUM 100 MG CAPSULE PO SCH (09:09)
[2018-01-25] MEDS: methylPREDNISolone SOD SUC 40 MG/1 ML VIAL IV SCH (09:09)
[2018-01-25] MEDS: ENOXAPARIN 40 MG/0.4 ML SYRINGE SUBCUT SCH (09:09)
[2018-01-25] MEDS: GABAPENTIN 300 MG CAPSULE PO SCH ×2 (09:09→20:08)
[2018-01-25] MEDS: PANTOPRAZOLE 40 MG TABLET PO SCH (09:09)
[2018-01-25 10:01] LABS: Eosinophils 5 % (0-10); Lymphocytes 1 % (20-55); Platelet Estimate Normal; Polychromasia Slight; Schistocytes Few; Segmented Neutrophils 83 % (50-85); Total Cells Counted 100
[2018-01-25 10:02] LABS: Hypochromasia 1+; Ovalocytes Few
[2018-01-25] MEDS: VANCOMYCIN INJ 1,000 MG in SODIUM CHLORIDE 0.9% 250 ML IV SCH ×2 (11:48→17:19)
[2018-01-26] MEDS: PIPERACILLIN/TAZOBACTAM 3,375 MG in SODIUM CHLORIDE 0.9% 100 ML IV SCH ×2 (02:46→15:47)
[2018-01-26] MEDS: ALBUTEROL/IPRATROPIUM 3 ML NEB RESP TX SCH ×4 (02:58→19:52)
[2018-01-26 09:17] LABS: Basophils % 0.1 % (0.0-0.8); Eosinophils # 0.2 10*3/uL (0.0-0.87); Eosinophils % 1.2 % (0.00-10.9); Immature Granulocytes % 17.9 %; Lymphocytes # 1.2 10*3/uL (1.4-4.0); Lymphocytes % 7.6 % (21.3-54.2); Mean Corpuscular HGB Conc 27.3 GM/DL (32-36); Mean Corpuscular Hemoglobin 26 PG (27-34); Mean Corpuscular Volume 95.7 FL (87-102); Mean Platelet Volume 10.9 FL (9.6-12.0); Monocytes # 0.7 10*3/uL (0.11-0.8); Monocytes % 4.4 % (1.7-12.7); NRBC # 0.03 10*3/uL; Neutrophils # 11.1 10*3/uL (1.4-7.4); Neutrophils % 68.8 % (38.7-73.9); Platelet Count 180 T/CUMM (130-400); Red Cell Distribution Width 16.2 % (9.3-17.3); White Blood Count 16.2 T/CUMM (4-12)
[2018-01-26 09:18] LABS: Osmolality,Calculated 290.8 MOS/KG (273-304); Potassium 4.4 MMOL/L (3.5-5.1)
[2018-01-26] MEDS: INSULIN LISPRO 100 UNIT/ML SUBCUT SCH ×4 (09:22→20:14)
[2018-01-26] MEDS: LEVOTHYROXINE 50 MCG TABLET PO SCH (09:22)
[2018-01-26] MEDS: PANTOPRAZOLE 40 MG TABLET PO SCH (09:23)
[2018-01-26] MEDS: GABAPENTIN 300 MG CAPSULE PO SCH ×2 (09:23→21:27)
[2018-01-26] MEDS: ENOXAPARIN 40 MG/0.4 ML SYRINGE SUBCUT SCH (09:24)
[2018-01-26 09:30] LABS: Hemoglobin 12.3 GM/DL (12.0-16.0)
[2018-01-26 09:37] LABS: Eosinophils 1 % (0-10); Lymphocytes 8 % (20-55); Segmented Neutrophils 87 % (50-85); Total Cells Counted 100
[2018-01-26 09:38] LABS: Hypochromasia 1+; Ovalocytes Slight; Platelet Estimate Adequate
[2018-01-26] MEDS: VANCOMYCIN INJ 1,000 MG in SODIUM CHLORIDE 0.9% 250 ML IV SCH (10:07)
[2018-01-26] MEDS: clonazePAM 0.5 MG TABLET PO PRN (21:41)
[2018-01-27] MEDS: ALBUTEROL/IPRATROPIUM 3 ML NEB RESP TX SCH ×3 (01:23→13:00)
[2018-01-27] MEDS: PIPERACILLIN/TAZOBACTAM 3,375 MG in SODIUM CHLORIDE 0.9% 100 ML IV SCH (01:35)
[2018-01-27] MEDS: VANCOMYCIN INJ 1,000 MG in SODIUM CHLORIDE 0.9% 250 ML IV SCH (06:30)
[2018-01-27] MEDS: LEVOTHYROXINE 50 MCG TABLET PO SCH (06:38)
[2018-01-27] MEDS: INSULIN LISPRO 100 UNIT/ML SUBCUT SCH ×2 (06:59→12:38)
[2018-01-27 08:04] LABS: Basophils % 0.2 % (0.0-0.8); Eosinophils # 0.3 10*3/uL (0.0-0.87); Eosinophils % 1.7 % (0.00-10.9); Hematocrit 43.7 VOL% (35.7-47.0); Hemoglobin 11.5 GM/DL (12.0-16.0); Immature Granulocytes % 16.3 %; Immature Granulocytes Absolute 2.99 #; Lymphocytes # 1.2 10*3/uL (1.4-4.0); Lymphocytes % 6.8 % (21.3-54.2); Mean Corpuscular HGB Conc 26.3 GM/DL (32-36); Mean Corpuscular Hemoglobin 25 PG (27-34); Mean Corpuscular Volume 96.7 FL (87-102); Monocytes # 0.8 10*3/uL (0.11-0.8); Monocytes % 4.3 % (1.7-12.7); NRBC # 0.02 10*3/uL; Neutrophils % 70.7 % (38.7-73.9); Platelet Count 154 T/CUMM (130-400); Red Blood Count 4.52 MC/CUMM (3.8-5.5); Red Cell Distribution Width 16.8 % (9.3-17.3); White Blood Count 18.3 T/CUMM (4-12)
[2018-01-27 08:18] LABS: Eosinophils 5 % (0-10); Hypochromasia 1+; Lymphocytes 8 % (20-55); Macrocytosis Slight; Platelet Estimate Adequate; Polychromasia Slight; Segmented Neutrophils 85 % (50-85); Total Cells Counted 100
[2018-01-27] MEDS: PANTOPRAZOLE 40 MG TABLET PO SCH (09:12)
[2018-01-27] MEDS: ENOXAPARIN 40 MG/0.4 ML SYRINGE SUBCUT SCH (09:13)
[2018-01-27] MEDS: GABAPENTIN 300 MG CAPSULE PO SCH (09:14)
[2018-01-27] MEDS ORDERED: FUROSEMIDE 40 MG/4 ML VIAL IV ONE (09:16)
[2018-01-27 11:19] VITALS: BP 116/46
== END 2018-01-27 13:30 | disposition swing bed (61) | DRG 193 ==
LOC: EDBD → EDUNIT# → N.ED 08:44 → N.EDINP 10:58 → N.2E 11:56 → N.ICU 13:20 → N.3E 01-21 10:58
PROVIDERS: ADMIT Family Medicine; ATTEND Family Medicine

== ENCOUNTER 2018-02-19 18:34 | Inpatient (IN) ==
[2018-02-19] MEDS: LEVOFLOXACIN INJ 500 MG in PREMIX 1 EACH IV SCH (23:11)
[2018-02-19] MEDS ORDERED: DEXTROSE 50% 25 GM/50 ML VIAL IV PRN (23:24)
[2018-02-19] MEDS ORDERED: GLUCAGON 1 MG VIAL IM PRN (23:24)
[2018-02-19] MEDS: INSULIN LISPRO 100 UNIT/ML SUBCUT SCH (23:30)
[2018-02-19] MEDS ORDERED: clonazePAM 0.5 MG TABLET PO PRN (23:43)
[2018-02-19] MEDS ORDERED: ALBUTEROL 2.5 MG/3 ML NEB RESP TX PRN (23:45)
[2018-02-20] MEDS ORDERED: MELATONIN 3 MG TABLET PO PRN (00:05)
[2018-02-20] MEDS: ALBUTEROL/IPRATROPIUM 3 ML NEB RESP TX SCH ×6 (02:07→20:22)
[2018-02-20 05:18] LABS: Albumin 2.5 G/DL (3.4-5.0); Osmolality,Calculated 298.6 MOS/KG (273-304); Potassium 4.6 MMOL/L (3.5-5.1); Total Protein 5.7 G/DL (6.4-8.3)
[2018-02-20 06:18] LABS: Basophils % 0.6 % (0.0-0.8); Eosinophils # 0.1 10*3/uL (0.0-0.87); Eosinophils % 0.7 % (0.00-10.9); Hematocrit 31.4 VOL% (35.7-47.0); Immature Granulocytes % 5.8 %; Lymphocytes # 1.5 10*3/uL (1.4-4.0); Lymphocytes % 22.1 % (21.3-54.2); Mean Corpuscular HGB Conc 27.4 GM/DL (32-36); Mean Corpuscular Hemoglobin 26 PG (27-34); Mean Platelet Volume 11.3 FL (9.6-12.0); Monocytes # 0.5 10*3/uL (0.11-0.8); Monocytes % 7.7 % (1.7-12.7); Neutrophils # 4.4 10*3/uL (1.4-7.4); Neutrophils % 63.1 % (38.7-73.9); Platelet Count 193 T/CUMM (130-400); Red Blood Count 3.27 MC/CUMM (3.8-5.5); Red Cell Distribution Width 18.6 % (9.3-17.3); White Blood Count 6.9 T/CUMM (4-12)
[2018-02-20 06:21] LABS: Hemoglobin 8.6 GM/DL (12.0-16.0)
[2018-02-20 06:28] LABS: Band Neutrophils 1 % (0-10); Hypochromasia 1+; Lymphocytes 21 % (20-55); Ovalocytes Slight; Platelet Estimate Adequate; Segmented Neutrophils 69 % (50-85); Total Cells Counted 100
[2018-02-20] MEDS: LEVOTHYROXINE 50 MCG TABLET PO SCH (07:02)
[2018-02-20] MEDS ORDERED: FUROSEMIDE 40 MG TABLET PO SCH (09:00)
[2018-02-20] MEDS: POTASSIUM CITRATE 10 MEQ TABLET PO SCH (09:28)
[2018-02-20] MEDS: GABAPENTIN 300 MG CAPSULE PO SCH ×2 (09:28→21:36)
[2018-02-20] MEDS: hydrALAZINE 25 MG TABLET PO SCH ×3 (09:28→21:37)
[2018-02-20] MEDS: LORATADINE 10 MG TABLET PO SCH (09:28)
[2018-02-20] MEDS: ENOXAPARIN 40 MG/0.4 ML SYRINGE SUBCUT SCH (09:28)
[2018-02-20] MEDS: INSULIN LISPRO 100 UNIT/ML SUBCUT SCH ×4 (09:29→21:31)
[2018-02-20] MEDS: PANTOPRAZOLE 40 MG TABLET PO SCH (11:25)
[2018-02-20 19:02] LABS: Apearance,Urine CLOUDY (Clear); Bilirubin,Urine Negative (Negative); Blood, Urine Negative (Negative); Glucose,Urine (UA) Negative (Negative); Ketones,Urine Negative (Negative); Nitrite,Urine Negative (Negative); Protein,Urine Negative; RBC,Urine 13 /HPF (0-4); Squamous Epithelial Cell,Urine Occasional /HPF (0-10); Urine Color Straw (Yellow); Urine Specific Gravity 1.006 (1.001-1.035); Urine Urobilinogen < 2.0 EU/DL (0.2-1.0); WBC,Urine 347 /HPF (0-6)
[2018-02-20] MEDS: LEVOFLOXACIN INJ 500 MG in PREMIX 1 EACH IV SCH (21:44)
[2018-02-21] MEDS: ALBUTEROL/IPRATROPIUM 3 ML NEB RESP TX SCH ×4 (01:49→19:20)
[2018-02-21] MEDS: LEVOTHYROXINE 50 MCG TABLET PO SCH (06:18)
[2018-02-21] MEDS: INSULIN LISPRO 100 UNIT/ML SUBCUT SCH ×4 (07:39→21:39)
[2018-02-21] MEDS: hydrALAZINE 25 MG TABLET PO SCH ×3 (09:37→22:08)
[2018-02-21] MEDS: PANTOPRAZOLE 40 MG TABLET PO SCH (09:37)
[2018-02-21] MEDS: LORATADINE 10 MG TABLET PO SCH (09:37)
[2018-02-21] MEDS: GABAPENTIN 300 MG CAPSULE PO SCH ×2 (09:37→21:38)
[2018-02-21] MEDS: ENOXAPARIN 40 MG/0.4 ML SYRINGE SUBCUT SCH (09:37)
[2018-02-21] MEDS: LEVOFLOXACIN INJ 500 MG in PREMIX 1 EACH IV SCH (21:39)
[2018-02-22] MEDS: ALBUTEROL/IPRATROPIUM 3 ML NEB RESP TX SCH ×4 (01:50→20:24)
[2018-02-22] MEDS: LEVOTHYROXINE 50 MCG TABLET PO SCH (05:00)
[2018-02-22] MEDS: PANTOPRAZOLE 40 MG TABLET PO SCH (09:13)
[2018-02-22] MEDS: ENOXAPARIN 40 MG/0.4 ML SYRINGE SUBCUT SCH (09:13)
[2018-02-22] MEDS: hydrALAZINE 25 MG TABLET PO SCH ×3 (09:13→21:49)
[2018-02-22] MEDS: GABAPENTIN 300 MG CAPSULE PO SCH ×2 (09:13→21:50)
[2018-02-22] MEDS: LORATADINE 10 MG TABLET PO SCH (09:13)
[2018-02-22] MEDS: INSULIN LISPRO 100 UNIT/ML SUBCUT SCH ×4 (09:13→21:49)
[2018-02-22] MEDS: FUROSEMIDE 40 MG/4 ML VIAL IV SCH (16:03)
[2018-02-22] MEDS: LEVOFLOXACIN INJ 500 MG in PREMIX 1 EACH IV SCH (21:51)
[2018-02-23] MEDS: ALBUTEROL/IPRATROPIUM 3 ML NEB RESP TX SCH ×4 (01:56→19:09)
[2018-02-23] MEDS: LEVOTHYROXINE 50 MCG TABLET PO SCH (07:14)
[2018-02-23] MEDS: INSULIN LISPRO 100 UNIT/ML SUBCUT SCH ×4 (08:57→23:20)
[2018-02-23] MEDS: hydrALAZINE 25 MG TABLET PO SCH ×3 (09:46→23:05)
[2018-02-23] MEDS: FUROSEMIDE 40 MG/4 ML VIAL IV SCH ×2 (09:46→15:48)
[2018-02-23] MEDS: POTASSIUM CITRATE 10 MEQ TABLET PO SCH (09:46)
[2018-02-23] MEDS: PANTOPRAZOLE 40 MG TABLET PO SCH (09:46)
[2018-02-23] MEDS: ENOXAPARIN 40 MG/0.4 ML SYRINGE SUBCUT SCH (09:46)
[2018-02-23] MEDS: LORATADINE 10 MG TABLET PO SCH (09:46)
[2018-02-23] MEDS: GABAPENTIN 300 MG CAPSULE PO SCH ×2 (09:46→23:05)
[2018-02-23] MEDS ORDERED: FLUCONAZOLE 150 MG TABLET PO ONE (10:00)
[2018-02-23 10:01] LABS: Calcium 7.8 MG/DL (8.5-10.1); Potassium 4.1 MMOL/L (3.5-5.1)
[2018-02-23 10:06] LABS: Basophils % 0.1 % (0.0-0.8); Eosinophils # 0.1 10*3/uL (0.0-0.87); Eosinophils % 0.7 % (0.00-10.9); Immature Granulocytes % 1.5 %; Immature Granulocytes Absolute 0.13 #; Lymphocytes # 1.5 10*3/uL (1.4-4.0); Lymphocytes % 18.1 % (21.3-54.2); Mean Corpuscular HGB Conc 28.1 GM/DL (32-36); Mean Corpuscular Hemoglobin 27 PG (27-34); Mean Corpuscular Volume 94.1 FL (87-102); Monocytes # 0.7 10*3/uL (0.11-0.8); Monocytes % 8.1 % (1.7-12.7); Neutrophils # 6.1 10*3/uL (1.4-7.4); Neutrophils % 71.5 % (38.7-73.9); Platelet Count 137 T/CUMM (130-400); Red Cell Distribution Width 19.2 % (9.3-17.3); White Blood Count 8.5 T/CUMM (4-12)
[2018-02-23 10:23] LABS: Anisocytosis 1+; Platelet Estimate Adequate
[2018-02-23 10:24] LABS: Basophilic Stippling Slight; Hypochromasia 1+
[2018-02-23] MEDS: ACETAMINOPHEN 500 MG TABLET PO PRN ×2 (15:48→23:15)
[2018-02-23] MEDS: LEVOFLOXACIN INJ 500 MG in PREMIX 1 EACH IV SCH (23:06)
[2018-02-24] MEDS: ALBUTEROL/IPRATROPIUM 3 ML NEB RESP TX SCH ×4 (01:49→19:00)
[2018-02-24] MEDS: LEVOTHYROXINE 50 MCG TABLET PO SCH (05:40)
[2018-02-24] MEDS ORDERED: MAGNESIUM CHLORIDE 64 MG TABLET PO ONE (08:00)
[2018-02-24] MEDS: INSULIN LISPRO 100 UNIT/ML SUBCUT SCH ×3 (08:44→16:19)
[2018-02-24] MEDS: FUROSEMIDE 40 MG/4 ML VIAL IV SCH ×2 (08:45→16:38)
[2018-02-24] MEDS: hydrALAZINE 25 MG TABLET PO SCH ×2 (08:45→16:01)
[2018-02-24] MEDS: LORATADINE 10 MG TABLET PO SCH (08:45)
[2018-02-24] MEDS: GABAPENTIN 300 MG CAPSULE PO SCH (08:45)
[2018-02-24] MEDS: ENOXAPARIN 40 MG/0.4 ML SYRINGE SUBCUT SCH (08:45)
[2018-02-24] MEDS: PANTOPRAZOLE 40 MG TABLET PO SCH (08:45)
[2018-02-24] MEDS ORDERED: SODIUM CHLORIDE 0.9% 500 ML IV ONE (20:38)
[2018-02-24 21:56] LABS: Basophils % 0.1 % (0.0-0.8); Eosinophils # 0.1 10*3/uL (0.0-0.87); Eosinophils % 0.6 % (0.00-10.9); Hematocrit 27.4 VOL% (35.7-47.0); Hemoglobin 7.5 GM/DL (12.0-16.0); Immature Granulocytes % 1.4 %; Immature Granulocytes Absolute 0.11 #; Lymphocytes # 1.1 10*3/uL (1.4-4.0); Lymphocytes % 13.8 % (21.3-54.2); Mean Corpuscular HGB Conc 27.4 GM/DL (32-36); Mean Corpuscular Hemoglobin 26 PG (27-34); Mean Corpuscular Volume 96.1 FL (87-102); Mean Platelet Volume 11.7 FL (9.6-12.0); Monocytes # 0.6 10*3/uL (0.11-0.8); Monocytes % 7.4 % (1.7-12.7); Neutrophils # 6.3 10*3/uL (1.4-7.4); Neutrophils % 76.7 % (38.7-73.9); Platelet Count 119 T/CUMM (130-400); Red Blood Count 2.85 MC/CUMM (3.8-5.5); Red Cell Distribution Width 19.8 % (9.3-17.3); White Blood Count 8.1 T/CUMM (4-12)
[2018-02-24 22:25] LABS: Hypochromasia 2+
[2018-02-24 22:26] LABS: Macrocytosis Slight; Polychromasia Few
[2018-02-24 22:27] LABS: Platelet Estimate Adequate; Stomatocytes Slight
[2018-02-25] MEDS: ALBUTEROL/IPRATROPIUM 3 ML NEB RESP TX SCH ×4 (01:22→19:46)
[2018-02-25] MEDS: hydrALAZINE 25 MG TABLET PO SCH ×4 (01:45→21:12)
[2018-02-25] MEDS: INSULIN LISPRO 100 UNIT/ML SUBCUT SCH ×5 (01:45→21:12)
[2018-02-25] MEDS: LEVOFLOXACIN INJ 500 MG in PREMIX 1 EACH IV SCH ×2 (01:46→21:12)
[2018-02-25] MEDS: GABAPENTIN 300 MG CAPSULE PO SCH ×3 (01:46→21:11)
[2018-02-25 06:10] LABS: ABG Base Excess 15.4 MMOL/L (-2.5-2.5); ABG HCO3 46.2 MMOL/L (20-26); ABG Oxygen Saturation 95.3 % (95-100); ABG PH 7.223 (7.35-7.45); ABG PO2 83.3 MM HG (80-95); ABG TCO2 49.7 MMOL/L (23-27)
[2018-02-25 06:11] LABS: Allen Test Positive
[2018-02-25 06:13] LABS: ABG PCO2 114.7 MM HG (35-48)
[2018-02-25] MEDS ORDERED: FUROSEMIDE 40 MG/4 ML VIAL IV ONE (06:37)
[2018-02-25 06:43] LABS: Calcium 7.4 MG/DL (8.5-10.1); Osmolality,Calculated 299.7 MOS/KG (273-304); Potassium 4.2 MMOL/L (3.5-5.1)
[2018-02-25] MEDS ORDERED: AMINOPHYLLINE 125 MG in SODIUM CHLORIDE 0.9% 100 ML IV ONE (07:26)
[2018-02-25] MEDS ORDERED: AMINOPHYLLINE 500 MG in SODIUM CHLORIDE 0.9% 480 ML IV SCH (08:00)
[2018-02-25 08:25] LABS: ABG Base Excess 14.6 MMOL/L (-2.5-2.5); ABG Oxygen Saturation 71.5 % (95-100); ABG PH 7.265 (7.35-7.45); ABG TCO2 42.7 MMOL/L (23-27)
[2018-02-25 08:27] LABS: ABG PO2 38.3 MM HG (80-95)
[2018-02-25 08:28] LABS: ABG PCO2 99.7 MM HG (35-48)
[2018-02-25] MEDS: LEVOTHYROXINE 50 MCG TABLET PO SCH (09:54)
[2018-02-25] MEDS: methylPREDNISolone SOD SUC 40 MG/1 ML VIAL IV SCH ×2 (09:54→21:11)
[2018-02-25 09:57] LABS: ABG Base Excess 15.4 MMOL/L (-2.5-2.5); ABG Oxygen Saturation 83.1 % (95-100); ABG PO2 46.1 MM HG (80-95); ABG TCO2 41.9 MMOL/L (23-27)
[2018-02-25 09:59] LABS: ABG PCO2 86.8 MM HG (35-48)
[2018-02-25] MEDS: LORATADINE 10 MG TABLET PO SCH (12:02)
[2018-02-25] MEDS: ENOXAPARIN 40 MG/0.4 ML SYRINGE SUBCUT SCH (12:02)
[2018-02-25] MEDS: FUROSEMIDE 40 MG/4 ML VIAL IV SCH ×2 (12:02→16:39)
[2018-02-25] MEDS: PANTOPRAZOLE 40 MG TABLET PO SCH (12:02)
[2018-02-25] MEDS: POTASSIUM CITRATE 10 MEQ TABLET PO SCH (12:04)
[2018-02-26] MEDS: ALBUTEROL/IPRATROPIUM 3 ML NEB RESP TX SCH ×4 (00:31→19:33)
[2018-02-26] MEDS: LEVOTHYROXINE 50 MCG TABLET PO SCH (05:58)
[2018-02-26] MEDS ORDERED: MIDAZOLAM 2 MG/2 ML VIAL ONE (07:58)
[2018-02-26] MEDS ORDERED: ROPIVACAINE 0.5% 30 ML VIAL ONE (07:58)
[2018-02-26] MEDS ORDERED: fentaNYL 100 MCG/2 ML VIAL ONE (07:58)
[2018-02-26] MEDS: LORATADINE 10 MG TABLET PO SCH (09:18)
[2018-02-26] MEDS: THEOPHYLLINE ER (24 HR) 300 MG CAPSULE PO SCH (09:18)
[2018-02-26] MEDS: GABAPENTIN 300 MG CAPSULE PO SCH ×2 (09:18→20:19)
[2018-02-26] MEDS: hydrALAZINE 25 MG TABLET PO SCH ×4 (09:18→20:28)
[2018-02-26] MEDS: PANTOPRAZOLE 40 MG TABLET PO SCH (09:18)
[2018-02-26] MEDS: methylPREDNISolone SOD SUC 40 MG/1 ML VIAL IV SCH ×2 (09:19→09:27)
[2018-02-26] MEDS: CEFEPIME 1,000 MG in SYRINGE 1 EACH IV SCH ×2 (09:21→20:15)
[2018-02-26] MEDS: INSULIN LISPRO 100 UNIT/ML SUBCUT SCH ×4 (09:22→20:49)
[2018-02-26] MEDS: FUROSEMIDE 40 MG/4 ML VIAL IV SCH (09:23)
[2018-02-26] MEDS: ENOXAPARIN 40 MG/0.4 ML SYRINGE SUBCUT SCH (09:24)
[2018-02-26] MEDS: INSULIN GLARGINE 100 UNIT/ML SUBCUT SCH (20:49)
[2018-02-27] MEDS: ALBUTEROL/IPRATROPIUM 3 ML NEB RESP TX SCH ×4 (00:51→19:01)
[2018-02-27 04:54] LABS: ABG Base Excess 14.3 MMOL/L (-2.5-2.5); ABG Oxygen Saturation 90.8 % (95-100); ABG PH 7.337 (7.35-7.45); ABG PO2 62.9 MM HG (80-95); ABG TCO2 40.3 MMOL/L (23-27); Allen Test Positive
[2018-02-27 05:22] LABS: Calcium 8.2 MG/DL (8.5-10.1); Potassium 3.8 MMOL/L (3.5-5.1)
[2018-02-27] MEDS: LEVOTHYROXINE 50 MCG TABLET PO SCH (06:22)
[2018-02-27] MEDS: FUROSEMIDE 40 MG/4 ML VIAL IV SCH (08:28)
[2018-02-27] MEDS: LORATADINE 10 MG TABLET PO SCH (08:29)
[2018-02-27] MEDS: GABAPENTIN 300 MG CAPSULE PO SCH ×2 (08:29→21:45)
[2018-02-27] MEDS: methylPREDNISolone SOD SUC 40 MG/1 ML VIAL IV SCH (08:30)
[2018-02-27] MEDS: CEFEPIME 1,000 MG in SYRINGE 1 EACH IV SCH ×2 (08:30→22:08)
[2018-02-27] MEDS: POTASSIUM CITRATE 10 MEQ TABLET PO SCH (08:30)
[2018-02-27] MEDS: ENOXAPARIN 40 MG/0.4 ML SYRINGE SUBCUT SCH (08:30)
[2018-02-27] MEDS: hydrALAZINE 25 MG TABLET PO SCH ×3 (08:30→21:45)
[2018-02-27] MEDS: PANTOPRAZOLE 40 MG TABLET PO SCH (08:30)
[2018-02-27] MEDS: THEOPHYLLINE ER (24 HR) 300 MG CAPSULE PO SCH (08:30)
[2018-02-27] MEDS: INSULIN LISPRO 100 UNIT/ML SUBCUT SCH ×4 (08:31→21:45)
[2018-02-27 10:16] LABS: Hematocrit 27.7 VOL% (35.7-47.0); Immature Granulocytes % 1.3 %; Immature Granulocytes Absolute 0.13 #; Lymphocytes % 9.7 % (21.3-54.2); Mean Corpuscular HGB Conc 27.4 GM/DL (32-36); Mean Corpuscular Hemoglobin 26 PG (27-34); Mean Corpuscular Volume 94.9 FL (87-102); Mean Platelet Volume 12.4 FL (9.6-12.0); Monocytes # 0.7 10*3/uL (0.11-0.8); Monocytes % 6.6 % (1.7-12.7); Neutrophils # 8.4 10*3/uL (1.4-7.4); Neutrophils % 82.4 % (38.7-73.9); Platelet Count 176 T/CUMM (130-400); Red Blood Count 2.92 MC/CUMM (3.8-5.5); Red Cell Distribution Width 19.6 % (9.3-17.3); White Blood Count 10.2 T/CUMM (4-12)
[2018-02-27 10:18] LABS: Hemoglobin 7.6 GM/DL (12.0-16.0)
[2018-02-27 10:52] LABS: Platelet Estimate Normal
[2018-02-27 10:53] LABS: Anisocytosis 1+; Basophilic Stippling Slight; Poikilocytosis 1+
[2018-02-27] MEDS: INSULIN GLARGINE 100 UNIT/ML SUBCUT SCH (21:46)
[2018-02-28] MEDS: ALBUTEROL/IPRATROPIUM 3 ML NEB RESP TX SCH ×4 (00:12→19:13)
[2018-02-28] MEDS: LEVOTHYROXINE 50 MCG TABLET PO SCH (05:44)
[2018-02-28 06:38] LABS: Calcium 7.7 MG/DL (8.5-10.1); Osmolality,Calculated 303.7 MOS/KG (273-304); Potassium 3.5 MMOL/L (3.5-5.1)
[2018-02-28 06:46] LABS: Basophils % 0.1 % (0.0-0.8); Eosinophils % 0.3 % (0.00-10.9); Hematocrit 29.2 VOL% (35.7-47.0); Hemoglobin 8.2 GM/DL (12.0-16.0); Immature Granulocytes % 1.9 %; Immature Granulocytes Absolute 0.14 #; Lymphocytes # 1.3 10*3/uL (1.4-4.0); Lymphocytes % 17.3 % (21.3-54.2); Mean Corpuscular HGB Conc 28.1 GM/DL (32-36); Mean Corpuscular Hemoglobin 26 PG (27-34); Mean Corpuscular Volume 93.3 FL (87-102); Mean Platelet Volume 11.8 FL (9.6-12.0); Monocytes # 0.5 10*3/uL (0.11-0.8); Neutrophils # 5.3 10*3/uL (1.4-7.4); Neutrophils % 73.4 % (38.7-73.9); Platelet Count 172 T/CUMM (130-400); Red Blood Count 3.13 MC/CUMM (3.8-5.5); Red Cell Distribution Width 19.4 % (9.3-17.3); White Blood Count 7.2 T/CUMM (4-12)
[2018-02-28] MEDS: PANTOPRAZOLE 40 MG TABLET PO SCH (09:33)
[2018-02-28] MEDS: ENOXAPARIN 40 MG/0.4 ML SYRINGE SUBCUT SCH (09:33)
[2018-02-28] MEDS: GABAPENTIN 300 MG CAPSULE PO SCH ×2 (09:33→21:09)
[2018-02-28] MEDS: THEOPHYLLINE ER (24 HR) 300 MG CAPSULE PO SCH (09:33)
[2018-02-28] MEDS: methylPREDNISolone SOD SUC 40 MG/1 ML VIAL IV SCH (09:34)
[2018-02-28] MEDS: CEFEPIME 1,000 MG in SYRINGE 1 EACH IV SCH ×2 (09:34→21:15)
[2018-02-28] MEDS: LORATADINE 10 MG TABLET PO SCH (09:34)
[2018-02-28] MEDS: FUROSEMIDE 40 MG/4 ML VIAL IV SCH (09:34)
[2018-02-28] MEDS: hydrALAZINE 25 MG TABLET PO SCH ×3 (09:34→20:48)
[2018-02-28] MEDS: INSULIN LISPRO 100 UNIT/ML SUBCUT SCH ×4 (09:35→21:10)
[2018-02-28 12:21] LABS: Apearance,Urine CLEAR (Clear); Bilirubin,Urine Negative (Negative); Blood, Urine Negative (Negative); Glucose,Urine (UA) Negative (Negative); Ketones,Urine Negative (Negative); Nitrite,Urine Negative (Negative); Protein,Urine Negative; RBC,Urine 2 /HPF (0-4); Urine Color Yellow (Yellow); Urine Specific Gravity 1.011 (1.001-1.035); Urine Urobilinogen < 2.0 EU/DL (0.2-1.0); WBC,Urine 31 /HPF (0-6)
[2018-02-28] MEDS: INSULIN GLARGINE 100 UNIT/ML SUBCUT SCH (21:09)
[2018-03-01] MEDS: ALBUTEROL/IPRATROPIUM 3 ML NEB RESP TX SCH ×4 (01:03→20:29)
[2018-03-01 06:15] LABS: Basophils % 0.1 % (0.0-0.8); Eosinophils % 0.5 % (0.00-10.9); Hematocrit 29.2 VOL% (35.7-47.0); Hemoglobin 8.2 GM/DL (12.0-16.0); Immature Granulocytes % 1.8 %; Immature Granulocytes Absolute 0.15 #; Lymphocytes # 1.1 10*3/uL (1.4-4.0); Lymphocytes % 12.5 % (21.3-54.2); Mean Corpuscular HGB Conc 28.1 GM/DL (32-36); Mean Corpuscular Hemoglobin 26 PG (27-34); Mean Corpuscular Volume 93.6 FL (87-102); Mean Platelet Volume 11.2 FL (9.6-12.0); Monocytes # 0.5 10*3/uL (0.11-0.8); Monocytes % 6.3 % (1.7-12.7); Neutrophils # 6.7 10*3/uL (1.4-7.4); Neutrophils % 78.8 % (38.7-73.9); Platelet Count 196 T/CUMM (130-400); Red Blood Count 3.12 MC/CUMM (3.8-5.5); Red Cell Distribution Width 19.1 % (9.3-17.3); White Blood Count 8.5 T/CUMM (4-12)
[2018-03-01] MEDS: LEVOTHYROXINE 50 MCG TABLET PO SCH (06:35)
[2018-03-01 06:59] LABS: Calcium 7.6 MG/DL (8.5-10.1); Potassium 3.5 MMOL/L (3.5-5.1)
[2018-03-01 07:10] LABS: Osmolality,Calculated 302.6 MOS/KG (273-304)
[2018-03-01] MEDS: INSULIN LISPRO 100 UNIT/ML SUBCUT SCH ×4 (07:29→20:43)
[2018-03-01] MEDS: THEOPHYLLINE ER (24 HR) 300 MG CAPSULE PO SCH (08:26)
[2018-03-01] MEDS: ENOXAPARIN 40 MG/0.4 ML SYRINGE SUBCUT SCH (08:26)
[2018-03-01] MEDS: methylPREDNISolone SOD SUC 40 MG/1 ML VIAL IV SCH (08:27)
[2018-03-01] MEDS: FUROSEMIDE 40 MG/4 ML VIAL IV SCH (08:27)
[2018-03-01] MEDS: hydrALAZINE 25 MG TABLET PO SCH ×3 (08:27→21:39)
[2018-03-01] MEDS: GABAPENTIN 300 MG CAPSULE PO SCH ×2 (08:27→20:43)
[2018-03-01] MEDS: LORATADINE 10 MG TABLET PO SCH (08:27)
[2018-03-01] MEDS: PANTOPRAZOLE 40 MG TABLET PO SCH (08:27)
[2018-03-01] MEDS: CEFEPIME 1,000 MG in SYRINGE 1 EACH IV SCH ×2 (08:30→20:14)
[2018-03-01] MEDS: ACETAMINOPHEN 500 MG TABLET PO PRN (20:42)
[2018-03-01] MEDS: INSULIN GLARGINE 100 UNIT/ML SUBCUT SCH (20:43)
[2018-03-02] MEDS: ALBUTEROL/IPRATROPIUM 3 ML NEB RESP TX SCH ×4 (03:02→19:33)
[2018-03-02 06:16] LABS: Basophils % 0.1 % (0.0-0.8); Eosinophils # 0.3 10*3/uL (0.0-0.87); Eosinophils % 2.9 % (0.00-10.9); Hematocrit 31.2 VOL% (35.7-47.0); Hemoglobin 8.9 GM/DL (12.0-16.0); Immature Granulocytes Absolute 0.09 #; Lymphocytes # 1.2 10*3/uL (1.4-4.0); Lymphocytes % 12.8 % (21.3-54.2); Mean Corpuscular HGB Conc 28.5 GM/DL (32-36); Mean Corpuscular Hemoglobin 26 PG (27-34); Mean Corpuscular Volume 92.3 FL (87-102); Mean Platelet Volume 11.5 FL (9.6-12.0); Monocytes # 0.6 10*3/uL (0.11-0.8); Monocytes % 6.4 % (1.7-12.7); Neutrophils # 6.9 10*3/uL (1.4-7.4); Neutrophils % 76.8 % (38.7-73.9); Platelet Count 200 T/CUMM (130-400); Red Blood Count 3.38 MC/CUMM (3.8-5.5); Red Cell Distribution Width 19.3 % (9.3-17.3)
[2018-03-02] MEDS: LEVOTHYROXINE 50 MCG TABLET PO SCH (06:51)
[2018-03-02] MEDS: INSULIN LISPRO 100 UNIT/ML SUBCUT SCH ×4 (07:54→21:18)
[2018-03-02] MEDS: POTASSIUM CITRATE 10 MEQ TABLET PO SCH (08:36)
[2018-03-02] MEDS: THEOPHYLLINE ER (24 HR) 300 MG CAPSULE PO SCH (08:36)
[2018-03-02] MEDS: PANTOPRAZOLE 40 MG TABLET PO SCH (08:36)
[2018-03-02] MEDS: ENOXAPARIN 40 MG/0.4 ML SYRINGE SUBCUT SCH (08:36)
[2018-03-02] MEDS: LORATADINE 10 MG TABLET PO SCH (08:36)
[2018-03-02] MEDS: hydrALAZINE 25 MG TABLET PO SCH ×3 (08:36→20:53)
[2018-03-02] MEDS: GABAPENTIN 300 MG CAPSULE PO SCH ×2 (08:36→20:53)
[2018-03-02] MEDS: FUROSEMIDE 40 MG/4 ML VIAL IV SCH (08:37)
[2018-03-02] MEDS: predniSONE 20 MG TABLET PO SCH (08:37)
[2018-03-02] MEDS: INSULIN GLARGINE 100 UNIT/ML SUBCUT SCH (21:19)
[2018-03-02] MEDS: ACETAMINOPHEN 500 MG TABLET PO PRN (23:42)
[2018-03-03] MEDS: ALBUTEROL/IPRATROPIUM 3 ML NEB RESP TX SCH ×4 (00:14→18:40)
[2018-03-03] MEDS: LEVOTHYROXINE 50 MCG TABLET PO SCH (06:19)
[2018-03-03] MEDS: INSULIN LISPRO 100 UNIT/ML SUBCUT SCH ×4 (08:28→21:59)
[2018-03-03] MEDS: ENOXAPARIN 40 MG/0.4 ML SYRINGE SUBCUT SCH (09:12)
[2018-03-03] MEDS: THEOPHYLLINE ER (24 HR) 300 MG CAPSULE PO SCH (09:12)
[2018-03-03] MEDS: GABAPENTIN 300 MG CAPSULE PO SCH ×2 (09:12→20:43)
[2018-03-03] MEDS: PANTOPRAZOLE 40 MG TABLET PO SCH (09:12)
[2018-03-03] MEDS: FUROSEMIDE 40 MG TABLET PO SCH (09:12)
[2018-03-03] MEDS: hydrALAZINE 25 MG TABLET PO SCH ×2 (09:12→17:48)
[2018-03-03] MEDS: LORATADINE 10 MG TABLET PO SCH (09:12)
[2018-03-03] MEDS: predniSONE 20 MG TABLET PO SCH (09:12)
[2018-03-03] MEDS: POTASSIUM CHLORIDE 10 MEQ TABLET PO SCH ×2 (09:12→20:43)
[2018-03-03] MEDS: ACETAMINOPHEN 500 MG TABLET PO PRN (20:43)
[2018-03-03] MEDS: INSULIN GLARGINE 100 UNIT/ML SUBCUT SCH (21:59)
[2018-03-04] MEDS: ALBUTEROL/IPRATROPIUM 3 ML NEB RESP TX SCH ×2 (01:00→07:44)
[2018-03-04] MEDS: LEVOTHYROXINE 50 MCG TABLET PO SCH (05:45)
[2018-03-04] MEDS: GABAPENTIN 300 MG CAPSULE PO SCH (10:34)
[2018-03-04] MEDS: POTASSIUM CITRATE 10 MEQ TABLET PO SCH (10:34)
[2018-03-04] MEDS: FUROSEMIDE 40 MG TABLET PO SCH (10:34)
[2018-03-04] MEDS: THEOPHYLLINE ER (24 HR) 300 MG CAPSULE PO SCH (10:34)
[2018-03-04] MEDS: LORATADINE 10 MG TABLET PO SCH (10:35)
[2018-03-04] MEDS: POTASSIUM CHLORIDE 10 MEQ TABLET PO SCH (10:39)
[2018-03-04] MEDS: PANTOPRAZOLE 40 MG TABLET PO SCH (10:39)
[2018-03-04] MEDS: predniSONE 20 MG TABLET PO SCH (10:39)
[2018-03-04] MEDS: ENOXAPARIN 40 MG/0.4 ML SYRINGE SUBCUT SCH (10:40)
[2018-03-04] MEDS: INSULIN LISPRO 100 UNIT/ML SUBCUT SCH ×2 (10:42→13:57)
[2018-03-04 11:56] VITALS: BP 129/62
== END 2018-03-04 15:18 | disposition swing bed (61) | DRG 193 ==
LOC: N.5E 20:18
PROVIDERS: ADMIT Family Medicine; ATTEND Family Medicine

== ENCOUNTER 2018-03-27 06:14 | Inpatient (IN) ==
[2018-03-27] MEDS ORDERED: ALBUTEROL 2.5 MG/3 ML NEB RESP TX STA (06:35)
[2018-03-27 06:46] LABS: Basophils # 0.1 10*3/uL (0.0-0.2); Basophils % 0.9 % (0.0-0.8); Eosinophils # 0.1 10*3/uL (0.0-0.87); Eosinophils % 1.2 % (0.00-10.9); Hematocrit 39.7 VOL% (35.7-47.0); Hemoglobin 10.7 GM/DL (12.0-16.0); Immature Granulocytes % 8.7 %; Immature Granulocytes Absolute 0.65 #; Lymphocytes # 1.1 10*3/uL (1.4-4.0); Lymphocytes % 14.4 % (21.3-54.2); Mean Corpuscular Hemoglobin 28 PG (27-34); Mean Corpuscular Volume 103.1 FL (87-102); Mean Platelet Volume 11.2 FL (9.6-12.0); Monocytes # 0.4 10*3/uL (0.11-0.8); Monocytes % 5.4 % (1.7-12.7); Neutrophils # 5.2 10*3/uL (1.4-7.4); Neutrophils % 69.4 % (38.7-73.9); Platelet Count 246 T/CUMM (130-400); Red Blood Count 3.85 MC/CUMM (3.8-5.5); Red Cell Distribution Width 18.3 % (9.3-17.3); White Blood Count 7.5 T/CUMM (4-12)
[2018-03-27 07:02] LABS: ABG Base Excess 8.2 MMOL/L (-2.5-2.5); ABG HCO3 31.9 MMOL/L (20-26); ABG Oxygen Saturation 93.9 % (95-100); ABG TCO2 38.3 MMOL/L (23-27); Allen Test Positive
[2018-03-27 07:02] LABS: Anisocytosis 1+; Band Neutrophils 7 % (0-10); Eosinophils 2 % (0-10); Lymphocytes 14 % (20-55); Macrocytosis 1+; Platelet Estimate Normal; Polychromasia Slight; Segmented Neutrophils 74 % (50-85); Total Cells Counted 100
[2018-03-27 07:04] LABS: ABG PH 7.178 (7.35-7.45)
[2018-03-27] MEDS ORDERED: FUROSEMIDE 40 MG/4 ML VIAL IV STA (07:26)
[2018-03-27] MEDS ORDERED: MORPHINE 4 MG/1 ML VIAL IV STA (07:26)
[2018-03-27] MEDS ORDERED: MORPHINE 4 MG/1 ML VIAL IV PRN (07:36)
[2018-03-27] MEDS ORDERED: ONDANSETRON 4 MG/2 ML VIAL IV PRN (07:36)
[2018-03-27] MEDS ORDERED: ALBUTEROL 2.5 MG/3 ML NEB RESP TX PRN ×2 (07:41)
[2018-03-27] MEDS ORDERED: clonazePAM 0.5 MG TABLET PO PRN (07:41)
[2018-03-27 08:00] LABS: Apearance,Urine CLOUDY (Clear); Bacteria,Urine Many /HPF (Few); Bilirubin,Urine Negative (Negative); Blood, Urine Negative (Negative); Glucose,Urine (UA) Negative (Negative); Ketones,Urine Negative (Negative); Nitrite,Urine Positive (Negative); Protein,Urine 30 MG/DL; RBC,Urine 5 /HPF (0-4); Urine Color Yellow (Yellow); Urine Specific Gravity 1.014 (1.001-1.035); Urine Urobilinogen < 2.0 EU/DL (0.2-1.0); WBC,Urine 525 /HPF (0-6)
[2018-03-27] MEDS ORDERED: POTASSIUM CITRATE 10 MEQ TABLET PO SCH (08:00)
[2018-03-27 08:04] LABS: Alanine Aminotransferase 13 U/L (13-56); Alkaline Phosphatase 109 U/L (45-117); Aspartate Amino Transferase 7 U/L (0-37); Bilirubin,Total < 0.39 MG/DL (0.2-1.0); Blood Urea Nitrogen 21 MG/DL (7-18); Calcium 8.6 MG/DL (8.5-10.1); Glucose 148 MG/DL (74-106); Osmolality,Calculated 282.5 MOS/KG (273-304); Potassium 5.9 MMOL/L (3.5-5.1); Sodium 139 MMOL/L (136-145); Total Protein 6.7 G/DL (6.4-8.3)
[2018-03-27] MEDS ORDERED: predniSONE 20 MG TABLET PO SCH (09:00)
[2018-03-27] MEDS ORDERED: INFLUENZA VIRUS VACCINE 0.5 ML SYRINGE IM ONE (09:06)
[2018-03-27] MEDS: THEOPHYLLINE ER (24 HR) 300 MG CAPSULE PO SCH (09:34)
[2018-03-27] MEDS: PANTOPRAZOLE 40 MG TABLET PO SCH (09:34)
[2018-03-27] MEDS: hydrALAZINE 25 MG TABLET PO SCH ×3 (09:34→21:13)
[2018-03-27] MEDS: FUROSEMIDE 40 MG/4 ML VIAL IV SCH ×2 (09:35→15:37)
[2018-03-27] MEDS: MEROPENEM 1,000 MG in SODIUM CHLORIDE 0.9% 100 ML IV SCH ×2 (09:35→21:14)
[2018-03-27] MEDS: LORATADINE 10 MG TABLET PO SCH (09:35)
[2018-03-27] MEDS: GABAPENTIN 300 MG CAPSULE PO SCH ×2 (09:35→21:14)
[2018-03-27] MEDS: DOCUSATE SODIUM 100 MG CAPSULE PO SCH ×2 (09:48→21:14)
[2018-03-27] MEDS: ALBUTEROL/IPRATROPIUM 3 ML NEB RESP TX SCH ×5 (12:00→19:01)
[2018-03-27] MEDS: methylPREDNISolone SOD SUC 40 MG/1 ML VIAL IV SCH ×2 (13:41→21:14)
[2018-03-27] MEDS: METOPROLOL TARTRATE 25 MG TABLET PO SCH (21:13)
[2018-03-27] MEDS: INSULIN GLARGINE 100 UNIT/ML SUBCUT SCH (21:14)
[2018-03-28] MEDS: ALBUTEROL/IPRATROPIUM 3 ML NEB RESP TX SCH ×3 (00:49→19:25)
[2018-03-28 03:35] LABS: Calcium 8.4 MG/DL (8.5-10.1); Osmolality,Calculated 281.7 MOS/KG (273-304); Potassium 5.7 MMOL/L (3.5-5.1); Risk Ratio 2.04; VLDL CHOLESTEROL 11.8 MG/DL
[2018-03-28 04:52] LABS: Osmolality,Calculated 278.8 MOS/KG (273-304); Potassium 5.7 MMOL/L (3.5-5.1); Thyroid Stimulating Hormone 0.836 uIU/ml (0.358-3.74)
[2018-03-28] MEDS: LEVOTHYROXINE 50 MCG TABLET PO SCH (05:31)
[2018-03-28] MEDS: methylPREDNISolone SOD SUC 40 MG/1 ML VIAL IV SCH ×3 (05:31→20:33)
[2018-03-28] MEDS: PANTOPRAZOLE 40 MG TABLET PO SCH (08:15)
[2018-03-28] MEDS: hydrALAZINE 25 MG TABLET PO SCH ×3 (08:15→20:34)
[2018-03-28] MEDS: METOPROLOL TARTRATE 25 MG TABLET PO SCH ×2 (08:15→20:33)
[2018-03-28] MEDS: DOCUSATE SODIUM 100 MG CAPSULE PO SCH ×2 (08:15→20:35)
[2018-03-28] MEDS: GABAPENTIN 300 MG CAPSULE PO SCH ×2 (08:15→20:34)
[2018-03-28] MEDS: THEOPHYLLINE ER (24 HR) 300 MG CAPSULE PO SCH (08:15)
[2018-03-28] MEDS: LORATADINE 10 MG TABLET PO SCH (08:16)
[2018-03-28] MEDS: MEROPENEM 1,000 MG in SODIUM CHLORIDE 0.9% 100 ML IV SCH ×2 (08:16→20:35)
[2018-03-28] MEDS: FUROSEMIDE 40 MG/4 ML VIAL IV SCH ×2 (08:16→16:59)
[2018-03-28] MEDS: INSULIN GLARGINE 100 UNIT/ML SUBCUT SCH (20:35)
[2018-03-29] MEDS: ALBUTEROL/IPRATROPIUM 3 ML NEB RESP TX SCH ×5 (00:41→21:11)
[2018-03-29] MEDS: methylPREDNISolone SOD SUC 40 MG/1 ML VIAL IV SCH ×3 (05:56→21:07)
[2018-03-29] MEDS: LEVOTHYROXINE 50 MCG TABLET PO SCH (05:58)
[2018-03-29] MEDS: LORATADINE 10 MG TABLET PO SCH (09:12)
[2018-03-29] MEDS: PANTOPRAZOLE 40 MG TABLET PO SCH (09:13)
[2018-03-29] MEDS: DOCUSATE SODIUM 100 MG CAPSULE PO SCH ×2 (09:13→21:08)
[2018-03-29] MEDS: THEOPHYLLINE ER (24 HR) 300 MG CAPSULE PO SCH (09:13)
[2018-03-29] MEDS: GABAPENTIN 300 MG CAPSULE PO SCH (09:16)
[2018-03-29] MEDS: hydrALAZINE 25 MG TABLET PO SCH ×3 (09:16→21:09)
[2018-03-29] MEDS ORDERED: GABAPENTIN 300 MG CAPSULE PO PRN (09:17)
[2018-03-29] MEDS: METOPROLOL TARTRATE 25 MG TABLET PO SCH ×2 (09:17→21:08)
[2018-03-29] MEDS: ACETAMINOPHEN 325 MG TABLET PO PRN ×2 (09:21→18:40)
[2018-03-29] MEDS: FUROSEMIDE 40 MG/4 ML VIAL IV SCH ×2 (09:23→16:00)
[2018-03-29] MEDS: MEROPENEM 1,000 MG in SODIUM CHLORIDE 0.9% 100 ML IV SCH (09:25)
[2018-03-29] MEDS: cefTRIAXone 1,000 MG in SYRINGE 1 EACH IV SCH (15:54)
[2018-03-29] MEDS: INSULIN GLARGINE 100 UNIT/ML SUBCUT SCH (21:08)
[2018-03-29] MEDS: GABAPENTIN 600 MG TABLET PO SCH (21:08)
[2018-03-30] MEDS: ALBUTEROL/IPRATROPIUM 3 ML NEB RESP TX SCH ×4 (01:15→19:48)
[2018-03-30 04:27] LABS: Calcium 8.1 MG/DL (8.5-10.1); Potassium 4.1 MMOL/L (3.5-5.1)
[2018-03-30] MEDS: methylPREDNISolone SOD SUC 40 MG/1 ML VIAL IV SCH ×2 (05:26→20:57)
[2018-03-30] MEDS: LEVOTHYROXINE 50 MCG TABLET PO SCH (05:27)
[2018-03-30] MEDS: FUROSEMIDE 40 MG/4 ML VIAL IV SCH ×2 (08:35→15:23)
[2018-03-30] MEDS ORDERED: LIDOCAINE 5% PATCH TRANSDERM SCH (09:00)
[2018-03-30] MEDS: THEOPHYLLINE ER (24 HR) 300 MG CAPSULE PO SCH (09:45)
[2018-03-30] MEDS: LORATADINE 10 MG TABLET PO SCH (09:45)
[2018-03-30] MEDS: DOCUSATE SODIUM 100 MG CAPSULE PO SCH ×3 (09:45→20:59)
[2018-03-30] MEDS: METOPROLOL TARTRATE 25 MG TABLET PO SCH ×2 (09:45→21:02)
[2018-03-30] MEDS: PANTOPRAZOLE 40 MG TABLET PO SCH (09:46)
[2018-03-30] MEDS: LIDOCAINE 5% PATCH TRANSDERM SCH (09:46)
[2018-03-30] MEDS: hydrALAZINE 25 MG TABLET PO SCH ×3 (09:46→21:00)
[2018-03-30] MEDS: GABAPENTIN 600 MG TABLET PO SCH ×2 (09:50→20:58)
[2018-03-30] MEDS ORDERED: GLUCAGON 1 MG VIAL IM PRN (11:30)
[2018-03-30] MEDS ORDERED: DEXTROSE 50% 25 GM/50 ML SYRINGE IV PRN (11:30)
[2018-03-30] MEDS: cefTRIAXone 1,000 MG in SYRINGE 1 EACH IV SCH (15:19)
[2018-03-30] MEDS: INSULIN GLARGINE 100 UNIT/ML SUBCUT SCH (20:56)
[2018-03-30] MEDS: ACETAMINOPHEN 325 MG TABLET PO PRN (20:59)
[2018-03-31] MEDS: ALBUTEROL/IPRATROPIUM 3 ML NEB RESP TX SCH ×2 (00:30→07:40)
[2018-03-31 08:32] VITALS: BP 130/71
[2018-03-31] MEDS: LORATADINE 10 MG TABLET PO SCH (09:19)
[2018-03-31] MEDS: GABAPENTIN 600 MG TABLET PO SCH (09:20)
[2018-03-31] MEDS: THEOPHYLLINE ER (24 HR) 300 MG CAPSULE PO SCH (09:20)
[2018-03-31] MEDS: LIDOCAINE 5% PATCH TRANSDERM SCH (09:20)
[2018-03-31] MEDS: hydrALAZINE 25 MG TABLET PO SCH (09:20)
[2018-03-31] MEDS: PANTOPRAZOLE 40 MG TABLET PO SCH (09:20)
[2018-03-31] MEDS: METOPROLOL TARTRATE 25 MG TABLET PO SCH (09:21)
[2018-03-31] MEDS: DOCUSATE SODIUM 100 MG CAPSULE PO SCH (09:21)
[2018-03-31] MEDS: methylPREDNISolone SOD SUC 40 MG/1 ML VIAL IV SCH (09:29)
[2018-03-31] MEDS: FUROSEMIDE 40 MG/4 ML VIAL IV SCH (09:29)
[2018-03-31] MEDS ORDERED: predniSONE 20 MG TABLET PO SCH (09:30)
[2018-03-31] MEDS ORDERED: PNEUMOCOCCAL VACCINE (23 VALENT) 0.5 ML VIAL IM ONE (12:02)
[2018-03-31] MEDS: ACETAMINOPHEN 325 MG TABLET PO PRN (12:20)
== END 2018-03-31 14:06 | disposition home health service (06) | DRG 291 ==
LOC: EDUNIT# → EDBD → N.ED 06:14 → N.EDINP 07:36 → N.CC 07:52 → N.TELEN 03-28 10:02
PROVIDERS: ADMIT Family Medicine; ATTEND Family Medicine